=== PATIENT | female | born 1965 | race Caucasian/White ===

== ENCOUNTER → 2019-12-31 13:36 | Outpatient (CLI) | payer SELFPAY ==
[2019-12-31 14:55] LABS: Color, Urine Yellow (Yellow); Glucose, Dipstick Normal (Normal); Ketone-Dipstick Negative (Negative); Leukocyte Esterase-Dipstick 500 /ul (Negative); Nitrite-Dipstick Positive (Negative); Occult Blood-Urine 25 /ul (Negative); Protein-Dipstick 30 mg/dl (Negative); Specific Gravity, Urine 1.015 (1.002-1.030); Urine Bilirubin Dipstick Negative (Negative); Urine Clarity Cloudy (Clear); Urine Urobilinogen Normal (Normal)
== END ==
PROVIDERS: PCP Family Medicine; Referring Provider Family Medicine; Visit Provider Family Medicine
DX: N30.10 Interstitial cystitis (chronic) without hematuria (principal); R30.0 Dysuria
CPT/HCPCS: 81002; 87086; 87088; 87186

== ENCOUNTER → 2020-01-18 12:44 | Outpatient (CLI) | payer SELFPAY | PROVIDERS: PCP Family Medicine; Referring Provider Family Medicine; Visit Provider Family Medicine | DX: N39.0 Urinary tract infection, site not specified (principal) | CPT/HCPCS: 87086; 87088 ==

== ENCOUNTER → 2020-04-30 11:30 | Outpatient (CLI) | payer SELFPAY ==
[2020-04-30 15:58] LABS: Absolute Lymphocyte Count 1.75 X10^3/uL (0.83-4.51); Absolute Neutrophil Count 2.9 X10^3/uL (2.0-7.7); Basophil# 0.03 X10^3/uL; Basophil% 0.6 % (0-1); Eosinophil# 0.08 X10^3/uL; Eosinophils% 1.5 % (0-5); Hematocrit 42.4 % (37-47); Hemoglobin 13.8 g/dL (12.0-15.0); Lymphocyte # 1.75 X10^3/ul (4.0); Lymphocyte % 33.3 % (19-41); Mean Corp Hgb Conc 32.5 g/dL (32-36); Mean Corpuscular Hgb 30.5 pg (27.0-32.0); Mean Corpuscular Volume 93.6 fL (81-99); Mean Platelet Vol. 10.9 fl (6.2-12.0); Monocyte# 0.46 X10^3/uL; Monocyte% 8.7 % (0-10); NRBC Flagged by Analyzer 0 % (0-5); Neutrophil # 2.92 X10^3/uL (2.7-7.7); Neutrophil % 55.5 % (47-70); Platelet Count 208 K/mm3 (150-450); RBC Distribution Width SD 41.4 fl (35.1-43.9); Red Blood Count 4.53 M/mm3 (4.2-5.4); White Blood Count 5.3 K/mm3 (4.4-11.0)
[2020-04-30 16:16] LABS: Hemoglobin A1c 5.6 % (3.8-5.6)
[2020-04-30 16:20] LABS: T4 Free Direct 1.04 ng/dL (0.76-1.46); Thyroid Stim Hormone (TSH) 0.98 uIU/mL (0.358-3.74)
[2020-05-05 21:24] LABS: HPV Reflexed? NOT INDICATED
== END ==
PROVIDERS: PCP Family Medicine; Visit Provider Family Medicine
DX: R53.83 Other fatigue (principal); Z13.1 Encounter for screening for diabetes mellitus; E04.9 Nontoxic goiter, unspecified; Z12.4 Encounter for screening for malignant neoplasm of cervix; Z01.419 Encounter for gynecological examination (general) (routine) without abnormal findings
CPT/HCPCS: 36415; 83036; 84439; 84443; 85025; 88175; G0145

== ENCOUNTER → 2021-05-07 07:48 | Outpatient (CLI) | payer OTHER, SELFPAY ==
[2021-05-07 09:56] LABS: Absolute Lymphocyte Count 1.24 X10^3/uL (0.83-4.51); Absolute Neutrophil Count 3.1 X10^3/uL (2.0-7.7); Basophil# 0.03 X10^3/uL; Basophil% 0.6 % (0-1); Eosinophil# 0.07 X10^3/uL; Eosinophils% 1.4 % (0-5); Hemoglobin 13.9 g/dL (12.0-15.0); Lymphocyte # 1.24 X10^3/ul (0.83-4.51); Lymphocyte % 25.5 % (19-41); Mean Corp Hgb Conc 33.9 g/dL (32-36); Mean Corpuscular Volume 88.6 fL (81-99); Mean Platelet Vol. 10.7 fl (6.2-12.0); Monocyte# 0.45 X10^3/uL; Monocyte% 9.3 % (0-10); NRBC Flagged by Analyzer 0 % (0-5); Neutrophil # 3.05 X10^3/uL (2.7-7.7); Neutrophil % 62.8 % (47-70); Platelet Count 182 K/mm3 (150-450); RBC Distribution Width CV 11.8 % (11.6-14.6); RBC Distribution Width SD 37.6 fl (35.1-43.9); Red Blood Count 4.63 M/mm3 (4.2-5.4); White Blood Count 4.9 K/mm3 (4.4-11.0)
[2021-05-07 10:13] LABS: Vitamin B12 503 pg/mL (211-911)
[2021-05-07 10:27] LABS: ALB/GLOB Ratio 1.2 RATIO (0.9-2.4); AST(SGOT) 18 U/L (15-37); Alanine Aminotransfer ALT/SGPT 32 U/L (13-56); Alkaline Phosphatase 78 U/L (45-117); Anion Gap 6 (5-15); BUN 13 mg/dL (7-18); BUN/Creat Ratio 13.6 RATIO (10-20); Calcium,Total 9.4 mg/dL (8.5-10.1); Chloride 105 mmol/L (98-107); Cholesterol 182 mg/dL (200); Creatinine, Serum 0.96 mg/dL (0.55-1.02); EST Glomerular Filtration Rate 64 mL/min (>60); Est Glom Filt Rate - Afr Amer 77 mL/min (>60); Ferritin 95 ng/mL (8-252); Globulin 3.4 g/dL (2.2-4.2); Glucose 101 mg/dL (74-106); High Density Lipoprotein 50 mg/dL; Iron 89 ug/dL (50-170); Magnesium 2.2 mg/dL (1.6-2.6); Potassium 4.3 mmol/L (3.5-5.1); Protein, Total 7.4 g/dL (6.4-8.2); Sodium Level 141 mmol/L (136-145); T4 Free Direct 0.96 ng/dL (0.76-1.46); Thyroid Stim Hormone (TSH) 1.02 uIU/mL (0.358-3.74); Triglycerides 131 mg/dL; Very Low Density Lipoprotein 26 mg/dL (5-40)
== END ==
PROVIDERS: PCP Family Medicine; Referring Provider Family Medicine; Visit Provider Family Medicine
DX: Z00.00 Encounter for general adult medical examination without abnormal findings (principal); E53.8 Deficiency of other specified B group vitamins; E04.9 Nontoxic goiter, unspecified; E55.9 Vitamin D deficiency, unspecified; D64.9 Anemia, unspecified
CPT/HCPCS: 36415; 80053; 80061; 82306; 82607; 82728; 82746; 83540; 83735; 84439; 84443; 85025

== ENCOUNTER → 2021-06-25 09:56 | Outpatient (CLI) | payer OTHER, SELFPAY ==
--- NOTE | 2021-06-25 10:03 | US_ITS ---
HISTORY: GOITER EXAMINATION: US Thyroid (eg thyroid, parathyroid, parotid) TECHNIQUE: Taylor scale and color doppler imaging was performed of the thyroid gland. COMPARISON: September 16, 2015, September 28, 2013 ultrasound . FINDINGS: RIGHT THYROID LOBE: 5.0 x 2.3 x 1.9 cm. Homogeneous echotexture with normal vascularity. Nodules: 1: Anterior lower pole solid hypoechoic wider than tall smoothly marginated nodule without calcifications 0.6 x 0.6 x 0.2 cm, TIRAD-4 2: Posterior lower pole mixed cystic solid hypoechoic wider than tall smoothly marginated nodule without calcifications 1.6 x 1.4 x 1.5 cm, TIRAD-3 (increased from 1.3 x 1.1 x 1.0 cm September 16, 2015 and 1.1 x 1.1 x 0.9 cm September 28, 2013 3: Anterior mid pole solid hypoechoic wider than tall smoothly marginated nodule without calcifications 0.4 x 0.3 x 0.4 cm, TIRAD-4 LEFT THYROID LOBE: 4.9 x 1.8 x 1.4 cm. Homogeneous echotexture with normal vascularity. Nodules: 1: Lower pole solid isoechoic wider than tall smoothly marginated nodule without calcifications 0.6 x 0.6 x 0.3, TIRAD-3. 2: Lower pole cystic anechoic 0.3 x 0.4 x 0.2 wider than tall smoothly marginated nodule without calcification, TIRAD-1 ISTHMUS: 0.3 cm. Nodules: No thyroid nodules are present. US/Thyroid IMPRESSION: Multinodular goiter with right thyroid 1.6 cm TI-RAD3 nodule and multiple subcentimeter TI-RAD 4 nodules. TI-RAD 3 is increased in size from 2016 ultrasound and subcentimeter TI-RAD 4 nodules are new or increased from prior exam.. One-year follow-up ultrasound is recommended per ACR criteria below if tissue sampling not obtained for histopathologic diagnosis. ACR TI-RADS recommendations (J Am Kaiden Radiol 2017): Based on composition, echogenicity, shape, margin, and echogenic foci. TR5 (=7 points) - Highly suspicious FNA if = 1cm, follow up if 0.5-0.9 cm every year for 5 years TR4 (4 - 6 points) - Moderately suspicious FNA if = 1.5cm, follow - up if 1-1.4 cm in 1, 2, 3 and 5 years TR3 (3 points) - Mildly suspicious FNA if = 2.5cm, follow - up if 1.5-2.4 cm in 1, 3 and 5 years TR2 (2 points) - Not suspicious No FNA or follow-up TR1 (0 points) - Benign No FNA or follow-up -Biopsy no more than 2 nodules which meet FNA criteria. -Follow/report no more than 4 nodules with highest TR point totals. -Follow-up can stop at 5 years if there is no change in size. -If nodule TR level increases on follow-up the next sonogram should be done in one year. at 0447 Reported and signed by: Lokesh French MD Electronically Signed: Lokesh French MD at 4:46 EDT Tel , Service support ,
== END ==
PROVIDERS: PCP Family Medicine; Referring Provider Family Medicine; Visit Provider Family Medicine
DX: E04.9 Nontoxic goiter, unspecified (principal)
CPT/HCPCS: 76536

== ENCOUNTER → 2021-06-30 07:09 | Outpatient (CLI) | payer OTHER, SELFPAY ==
--- NOTE | 2021-06-30 07:12 | BI_ITS ---
MAMMOGRAPHY - BILATERAL SCREENING REASON FOR EXAM: Female, 55 years old. Routine annual screening examination. PERTINENT HISTORY: Non-contributory. TECHNIQUE: Digital bilateral breast elder (3D mammographic acquisition) in the CC and MLO projections. 2-D mediolateral oblique (MLO) and craniocaudad (CC) views of both breasts were obtained. CAD: Full Field Digital Mammography with Computer Added Detection was performed. COMPARISON: Comparison is made with prior study 06/17/2017 and 06/11/2016. FINDINGS: Breast Composition: The breasts are extremely dense, which lowers the sensitivity of mammography. There are no dominant masses or suspicious calcifications. No other significant abnormalities are identified. There has been no significant change since the prior study. BI/SCRN MAMM (CAD)W/ELDER BILAT IMPRESSION: Stable bilateral screening mammogram. Yearly follow-up mammogram recommended. (A) ASSESSMENT CATEGORY: BIRADS Category 1: Negative. A letter regarding these results will be sent to the patient by the facility within 30 days. Approximately 10% of breast cancers are not detected by mammography. A normal mammogram should not delay biopsy of a clinically suspicious abnormality. [id number] Electronically Signed: Brady Cuenca MD at 9:03 EDT , Service support ,
== END ==
PROVIDERS: PCP Family Medicine; Referring Provider Family Medicine; Visit Provider Family Medicine
DX: Z12.31 Encounter for screening mammogram for malignant neoplasm of breast (principal)
CPT/HCPCS: 77063; 77067

== ENCOUNTER → 2022-02-10 | Outpatient (CLI) | payer OTHER, SELFPAY ==
--- NOTE | 2022-02-10 11:44 | STRESSREP ---
Stress Test Report Pharmacologic myocardial perfusion stress test 56-year-old lady with a history of chest discomfort. Stress protocol: Resting EKG demonstrates normal sinus rhythm with a rate of 66 bpm normal intervals are noted resting blood pressure is 118/70 mmHg. 0.4 mg of regadenoson was infused per usual protocol followed by rapid intravenous saline flush injection continuous EKG monitoring was performed. The maximum heart rate attained was 90 bpm which was 55% of max impacted heart rate the maximum workload was 1 metabolic equivalent. At rest there were no ST or T wave changes noted to suggest abnormal flow reserve and at peak infusion nonspecific ST changes were noted with did not meet the criteria for ischemia. No clinical angina was noted the final blood pressure was 120/72 mmHg. Myocardial perfusion protocol. 11.8 mCi of technetium 99m sestamibi was injected at rest. 0.4 mg of regadenoson was infused per usual protocol. At peak infusion 33.0 mCi of technetium 99m sestamibi was injected stress images were obtained stress and rest images were reconstructed and compared in the short axis vertical long and horizontal long axis. Gated images were also obtained. Perfusion SPECT analysis: Review of the stress images demonstrate normal uptake of tracer noted in all areas of the myocardium except for reduction of perfusion in the anterior wall. The resting images similarly demonstrate normal uptake of tracer noted in all areas of the myocardium with mild reduction of perfusion in the anterior wall which appears to be improved compared to the stress images. The above could be suggestive of mild anterior ischemia. The rest of the chiang appear to be normally perfused. Gated SPECT analysis: Next gated ejection fraction is 72%. Conclusion: Pharmacologic myocardial perfusion stress test with possible anterior ischemia noted. Preserved ejection fraction.
== END | disposition home or self-care (01) ==
LOC: CVS 06:47
PROVIDERS: PCP Family Medicine; Visit Provider Family Medicine
DX: R07.9 Chest pain, unspecified (principal); R94.31 Abnormal electrocardiogram [ECG] [EKG]; R06.09 Other forms of dyspnea; Z82.49 Family history of ischemic heart disease and other diseases of the circulatory system
CPT/HCPCS: 78452; 93017; A9500; A4216; J2785

== ENCOUNTER → 2022-02-12 | Outpatient (CLI) | payer OTHER, SELFPAY ==
--- NOTE | 2022-02-12 08:02 | MRI_ITS ---
STUDY: MRI LUMBAR SPINE WITHOUT CONTRAST REASON FOR EXAM: Female, 56 years old. HERNIATED DISC X 2 TECHNIQUE: Standardized fat and water weighted pulse sequences were obtained in the sagittal and axial planes. COMPARISON: CT abdomen and pelvis with contrast 12/23/2016. FINDINGS: T10-T11, T11-T12 and T12-L1: (Sagittal only). Normal endplates. Normal disc height, hydration and morphology. No ventral extradural defects. Normal central canal and bilateral intervertebral neural foramina. Normal lumbar lordosis. There is no substantial scoliosis. Normal conus medullaris that terminates at the lower L1 vertebral body level. L1-2: Normal endplates. Normal disc height. Mild ventral extradural defect due to small posterior bulging annulus. Normal facet joints. Normal central canal and bilateral lateral recesses. Normal bilateral intervertebral neural foramina. L2-3: Normal endplates. Normal disc height and hydration. Minimal ventral extradural defect due to small posterior bulging annulus. Mild left degenerative facet arthropathy. Normal right facet joint. Normal central canal and bilateral lateral recesses. Normal bilateral intervertebral neural foramina. L3-4: Normal endplates. Normal disc height, hydration and morphology. Normal bilateral facet joints. Normal central canal and bilateral lateral recesses. Normal bilateral intervertebral neural foramina. L4-5: Normal endplates. Normal disc height with mild loss of disc hydration. Moderate right degenerative facet arthropathy. Mild to moderate left degenerative facet arthropathy. Normal central canal and bilateral lateral recesses. Normal bilateral intervertebral neural foramina. L5-S1: Normal endplates. Normal disc height and morphology. Normal facet joints. Normal central canal and bilateral lateral recesses. TARLOV cyst in the right lateral recess. Normal bilateral intervertebral neural foramina. Normal visualized sacral ala. Normal visualized paraspinous soft tissue structures. MRI/Spine Lumbar (Routine) IMPRESSION: No MRI evidence of lumbar extruded disc fragment, spinal stenosis or nerve root displacement. Electronically Signed: Kole Wilson MD at 16:25 EDT ,
== END | disposition home or self-care (01) ==
PROVIDERS: PCP Family Medicine; Referring Provider Family Medicine; Visit Provider Family Medicine
DX: M51.16 Intervertebral disc disorders with radiculopathy, lumbar region (principal)
CPT/HCPCS: 72148

== ENCOUNTER → 2022-04-14 | Outpatient (CLI) | payer OTHER, SELFPAY ==
--- NOTE | 2022-04-14 14:24 | RAD_ITS ---
STUDY: X-RAY CHEST REASON FOR EXAM: Female, 56 years old. cad TECHNIQUE: XR Chest 2 Views COMPARISON: None FINDINGS: There is no demonstrated pleural abnormality. Normal size heart. Normal mediastinum and frederic. Normal visualized pulmonary arteries. Normal visualized aortic arch and descending thoracic aorta. There are diffuse degenerative changes of the visualized thoracic spine. Normal visualized ribs, clavicles, and shoulders. There is no demonstrated abnormality of the visualized soft tissue structures of the upper abdomen. RAD/Chest PA and Lateral IMPRESSION: There are no acute findings. Electronically Signed: Ilia Sarkar MD at 20:03 EDT ,
[2022-04-14 16:38] LABS: Absolute Lymphocyte Count 1.47 X10^3/uL (0.83-4.51); Basophil# 0.03 X10^3/uL; Basophil% 0.6 % (0-1); Eosinophil# 0.08 X10^3/uL; Eosinophils% 1.6 % (0-5); Hematocrit 41.1 % (37-47); Hemoglobin 14.2 g/dL (12.0-15.0); Lymphocyte # 1.47 X10^3/ul (0.83-4.51); Lymphocyte % 28.5 % (19-41); Mean Corp Hgb Conc 34.5 g/dL (32-36); Mean Corpuscular Hgb 30.8 pg (27.0-32.0); Mean Corpuscular Volume 89.2 fL (81-99); Mean Platelet Vol. 10.6 fl (6.2-12.0); Monocyte# 0.54 X10^3/uL; Monocyte% 10.5 % (0-10); NRBC Flagged by Analyzer 0 % (0-5); Neutrophil # 3.02 X10^3/uL (2.7-7.7); Neutrophil % 58.4 % (47-70); Platelet Count 193 K/mm3 (150-450); RBC Distribution Width CV 11.9 % (11.6-14.6); RBC Distribution Width SD 38.9 fl (35.1-43.9); Red Blood Count 4.61 M/mm3 (4.2-5.4); White Blood Count 5.2 K/mm3 (4.4-11.0)
[2022-04-14 18:52] LABS: Anion Gap 7 (5-15); BUN 14 mg/dL (7-18); BUN/Creat Ratio 15.2 RATIO (10-20); Calcium,Total 9.3 mg/dL (8.5-10.1); Chloride 105 mmol/L (98-107); Creatinine, Serum 0.92 mg/dL (0.55-1.02); EST Glomerular Filtration Rate 67 mL/min (>60); Est Glom Filt Rate - Afr Amer 81 mL/min (>60); Glucose 84 mg/dL (74-106); Potassium 3.9 mmol/L (3.5-5.1); Sodium Level 141 mmol/L (136-145)
== END | disposition home or self-care (01) ==
PROVIDERS: PCP Family Medicine; Referring Provider Internal Medicine Cardiovascular Disease; Visit Provider Internal Medicine Cardiovascular Disease
DX: I25.10 Atherosclerotic heart disease of native coronary artery without angina pectoris (principal); R94.39 Abnormal result of other cardiovascular function study; R07.9 Chest pain, unspecified
CPT/HCPCS: 36415; 71046; 80048; 85025

== ENCOUNTER 2022-04-19 08:57 | Day surgery (SDC) | payer OTHER, SELFPAY ==
[2022-04-16 08:51] VITALS: BMI 29.2
--- NOTE | 2022-04-19 12:30 | CL.D_ITS ---
Patient Name: KOSTA GHOTRA Study Date: 04/19/2022 Performing: Mac Lees MD Ht: 66.92 inches 170 cm : 1965 Wt: 187.39 lbs 85 kg Age: 56 Gender: female BSA: 1.97 PROCEDURE(S) PERFORMED [id number]-([id number])[facility] CLINICAL PROFILE AND INDICATIONS Indications: New Onset Angina <= 2 months Heart Failure: None Stress/Imaging Date: 04/14/22 CAD Presentations: Symptom unlikely to be ischemic. 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 The risks and benefits of the procedure as well as a full d escription of our services here and current unavailability of surgical backup were fully explained to the patient and/or their significant other prior to the catheterization. The Timeout was completed, verifying the correct patient and procedure. The patient's procedural site was prepped and draped in the usual fashion. Local anesthetic was given subcutaneously to right radial region with Lidocaine 2% . Using a modified Seldinger technique, arterial access was obtained via the right radial artery, a 6 Fr sheath was inserted. Right Coronary Artery selective angiography was then performed in multiple v iews using a 5 Fr. 4.0 Davilla catheter. Left Coronary Artery selective angiography was performed in mu ltiple views using a 5 Fr. 4.0 Davilla catheter.The arterial sheath was pulled and a TR Band was applie d for hemostasis w/ 12ml air CORONARY ANGIOGRAPHY DOMINANCE: Right Dominant LEFT HEART ASSESSMENT Left Ventricular Ejection Fraction: Not assessed LEFT MAIN: Angiographically normal LEFT ANTERIOR DESCENDING ARTERY: Angiographically normal RIGHT CORONARY ARTERY: Angiographically normal Arising from left coronary cusp. COMPLICATIONS No Complications PROCEDURE MEDICATIONS Versed 1 mg IV Fentanyl 50 mcg IV Oxygen: 2 L/min via nasal cannula SUMMARY OF HEMODYNAMIC DATA Time AIR REST ECG 09:25:14 Art 122/66 (88) 11:53:28 AO 102/73 (87) SA 12:02:14 Signed By Mac Lees MD On 04/19/2022 12:30:03 PM Mac Lees MD
[2022-04-19 13:33] VITALS: BP 106/76; PULSE 69; RESP 16
[2022-04-19 13:40] VITALS: BP 112/76; PULSE 61; RESP 16
[2022-04-19 13:49] VITALS: BP 112/76; PULSE 65
[2022-04-19] MEDS: Nitroglycerin SL (ED/IMG/CATH) 0.4 MG TABLET SL (13:49)
[2022-04-19 13:54] VITALS: BP 103/69; PULSE 74; RESP 16
--- NOTE | 2022-04-19 14:29 | CT_ITS ---
INDICATION: OVER READ FOR CARDIAC EXAMINATION: CT CHEST WITHOUT CONTRAST - CT Chest W/O Contrast Injection TECHNIQUE: Helically acquired images were obtained of the chest. A radiation dose optimization technique was used for this scan. IV Contrast dosage and agent: None. COMPARISON: None. FINDINGS: LUNGS, PLEURA AND LARGE AIRWAYS: Mild degree of increased linear markings at the lung bases suggestive of a bibasilar linear atelectasis. No pleural effusion or thickening. No pneumothorax. THYROID: No thyroid lesions. HEART AND PERICARDIUM: Heart size is normal. No pericardial effusion. CORONARY ARTERIES: Coronary artery calcification is not seen. VESSELS: Thoracic aorta is not dilated. MEDIASTINUM AND GRACE: No mediastinal or hilar adenopathy. Esophagus is unremarkable. No hiatal hernia. UPPER ABDOMEN: No acute pathology. BONES: Degenerative changes of the thoracic spine. CT/Limited Chest CT Cardiac Only IMPRESSION: Mild degree of basilar linear atelectasis. Electronically Signed: Brady Cuenca MD at 14:58 EDT ,
--- NOTE | 2022-04-19 17:55 | CCTA.WCONT ---
CCTA w/Cont Coronary Arteries Date of Study:: 04/19/22 Coronary anomaly LEFT MAIN CORONARY ARTERY: This arises normally from the left coronary cusp and bifurcates into the left anterior descending artery and the left circumflex artery [] LEFT ANTERIOR DESCENDING CORONARY ARTERY: Medium size vessel giving off diagonal and septal perforators with no significant stenosis noted [] LEFT CIRCUMFLEX CORONARY ARTERY: This vessel comes off the left main coronary artery and is a nondominant vessel with no significant stenosis noted [] RIGHT CORONARY ARTERY: Dominant vessel coming off the left coronary cusp and coursing between the pulmonary artery anteriorly and the aorta posteriorly and then terminates after giving off an acute marginal and posterior descending artery [] THORACIC AORTA: Normal size [] PULMONARY ARTERY: Normal size [] [] LEFT VENTRICLE: Normal size ventricle with normal ejection fraction [] Conclusion: 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 No obstructive coronary disease noted []
== END 2022-04-19 14:25 | disposition home or self-care (01) ==
PROVIDERS: PCP Family Medicine; Referring Provider Internal Medicine Cardiovascular Disease; Visit Provider Internal Medicine Cardiovascular Disease
DX: R07.89 Other chest pain (principal); R94.39 Abnormal result of other cardiovascular function study; K21.9 Gastro-esophageal reflux disease without esophagitis; Z82.49 Family history of ischemic heart disease and other diseases of the circulatory system; Z87.891 Personal history of nicotine dependence
CPT/HCPCS: 75574; 76380; 93454; 99152; 99153; J7040; Q9967; C1769; C1887; C1894

== ENCOUNTER → 2022-04-23 | Outpatient (CLI) | payer OTHER, SELFPAY ==
--- NOTE | 2022-04-23 06:49 | CDU_ITS ---
Reason For Study: CAD Rt. Velocities/BP Lt. Velocities/BP Prox CCA 89/17 cm/sec. Prox CCA 94/22 cm/sec. Mid CCA 70/21 cm/sec. Mid CCA 79/22 cm/sec. Dist CCA 59/18 cm/sec. Dist CCA 61/22 cm/sec. Prox ICA 66/20 cm/sec. Prox ICA 73/23 cm/sec. Mid ICA 82/24 cm/sec. Mid ICA 60/25 cm/sec. Dist ICA 84/27 cm/sec. Dist ICA 80/37 cm/sec. Rt. ICA/CCA = 1.2. Lt. ICA/CCA = 1.0. Prox ECA 74/13 cm/sec. Prox ECA 84/22 cm/sec. Rt. Vert. 49/18 cm/sec. Lt. Vert. 49/19 cm/sec. Right Extracranial There is heterogeneous, irregular atherosclerotic plaque noted in the right common carotid artery. There is no significant atherosclerotic plaque noted in the right internal carotid artery. There is no significant atherosclerotic plaque noted in the right external carotid artery. Antegrade flow is noted in the right vertebral artery. Left Extracranial There is intimal thickening but no significant atherosclerotic plaque noted in the left common carotid artery. There is no significant atherosclerotic plaque noted in the left internal carotid artery. There is no significant atherosclerotic plaque noted in the left external carotid artery. Antegrade flow is noted in the left vertebral artery. Procedure Carotid Duplex 30251. This is a Carotid Duplex examination using B-mode, color flow and specral Doppler. Exam performed in department. VL/Carotid Duplex Ultrasound Interpretation Summary Normal right extracranial internal carotid. Normal left extracranial internal carotid. Patent and antegrade vertebrals bilaterally. Ordering Physician: Mac Lees Referring Physician: Yoshi Henderson Performed By: Brandy Driver, RDCS, RVT
--- NOTE | 2022-04-23 06:49 | ECHOD_ITS ---
Reason For Study: CAD/ASHD Procedure This was a 2D Doppler, Color Flow transthoracic echocardiogram. Exam performed in department. Left Ventricle Normal LV size. Left ventricular systolic function is normal. The estimated ejection fraction is 55 %. Normal diastology for age. No regional wall motion abnormalities noted. Right Ventricle Normal RV size. Normal systolic function. Atria Normal left atrium. Normal right atrium. Mitral Valve Normal mitral valve. Tricuspid Valve Normal tricuspid valve. Mild (1+) tricuspid valve insufficiency. Pulmonary artery systolic pressure is 23 mmHg. Aortic Valve Trisinus/trileaflet aortic valve. 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 Pulmonic Valve Normal pulmonic valve. Great Vessels Normal aortic root. Pericardium/Pleural No pericardial effusion. MMode/2D Measurements & Calculations LVIDd: 5.1 cm IVSd: 0.88 cm Ao root diam: 3.4 cm LVIDs: 3.6 cm LVPWd: 0.88 cm RVDd: 2.7 cm FS: 29.6 % LAV(MOD-bp): 61.1 ml LVAd ap4: 27.9 cm2 LVAd ap2: 22.1 cm2 LAV(MOD-bp) Indexed: 31.1 ml/m2 LVLd ap4: 7.8 cm LVLd ap2: 7.6 cm LAV(MOD-sp2): 56.0 ml EDV(MOD-sp4): 90.3 ml EDV(MOD-sp2): 56.6 ml LAV(MOD-sp4): 64.7 ml EDV(sp4-el): 84.7 ml EDV(sp2-el): 54.9 ml LVAs ap4: 15.7 cm2 LVAs ap2: 11.8 cm2 LVLs ap4: 5.8 cm LVLs ap2: 6.0 cm ESV(MOD-sp4): 38.4 ml ESV(MOD-sp2): 20.5 ml ESV(sp4-el): 36.1 ml ESV(sp2-el): 19.5 ml EF(MOD-sp4): 57.5 % EF(MOD-sp2): 63.7 % EF(sp4-el): 57.3 % SV(MOD-sp4): 51.9 ml SV(MOD-sp2): 36.1 ml SV(sp4-el): 48.5 ml LA dimension(2D): 3.4 cm LA A4 area: 20.7 cm2 RA A4 area: 13.7 cm2 Time Measurements MV dec time: 0.17 sec Doppler Measurements & Calculations MV E max lloyd: 83.7 cm/sec Lat Peak E' Lloyd: 7.7 cm/sec Med Peak E' Lloyd: 7.4 cm/sec MV A max lloyd: 69.6 cm/sec E/E' lat: 10.9 E/E' med: 11.3 MV E/A: 1.2 Ao V2 max: 113.7 cm/sec LV V1 max: 77.9 cm/sec PA V2 max: 70.0 cm/sec Ao max P.2 mmHg LV V1 max P.4 mmHg Ao V2 mean: 78.0 cm/sec LV V1 mean P.4 mmHg Ao mean P.8 mmHg LV V1 mean: 55.1 cm/sec Ao V2 VTI: 27.8 cm LV V1 VTI: 19.7 cm TR max lloyd: 230.2 cm/sec TR max P.2 mmHg ECHO/Echo Complete Interpretation Summary Normal LV size. Left ventricular systolic function is normal. The estimated ejection fraction is 55 %. Trisinus/trileaflet aortic valve. 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
--- NOTE | 2022-04-25 08:57 | PFT ---
INTRODUCTION: The patient is a 56-year-old female that presents for pulmonary function studies secondary to a diagnosis of preop clearance. Respiratory therapy reported good patient effort. Bronchodilators were used during testing. INTERPRETATION: Forced expiration spirometry demonstrates no evidence of a large airways obstructive ventilatory defect. There was no significant response to aerosolized bronchodilators. Spirograms are of good quality and plateau normally. The respiratory flow volume loop is normal. Body plethysmography was performed and reveals lung volumes to be within normal limits. Diffusing capacity by single breath CO is also within normal limits. IMPRESSION: Grossly normal pulmonary function studies.
== END | disposition home or self-care (01) ==
PROVIDERS: PCP Family Medicine; Referring Provider Internal Medicine Cardiovascular Disease; Visit Provider Internal Medicine Cardiovascular Disease
DX: R94.39 Abnormal result of other cardiovascular function study (principal); R94.31 Abnormal electrocardiogram [ECG] [EKG]; Q24.5 Malformation of coronary vessels; R07.9 Chest pain, unspecified; E66.9 Obesity, unspecified; R91.1 Solitary pulmonary nodule; I25.10 Atherosclerotic heart disease of native coronary artery without angina pectoris
CPT/HCPCS: 93306; 93880; 94060; 94726; 94729

== ENCOUNTER → 2022-05-28 | Outpatient (CLI) | payer OTHER, SELFPAY ==
[2022-05-28 17:41] LABS: ALB/GLOB Ratio 1.2 RATIO (0.9-2.4); AST(SGOT) 10 U/L (15-37); Alanine Aminotransfer ALT/SGPT 19 U/L (13-56); Albumin, Serum 3.7 g/dL (3.2-5.0); Alkaline Phosphatase 108 U/L (45-117); Anion Gap 5 (5-15); BUN 15 mg/dL (7-18); BUN/Creat Ratio 16.1 RATIO (10-20); CPK Total, Creatine Kinase 51 U/L (26-192); Calcium,Total 9.6 mg/dL (8.5-10.1); Chloride 106 mmol/L (98-107); Creatinine, Serum 0.93 mg/dL (0.55-1.02); EST Glomerular Filtration Rate 66 mL/min (>60); Est Glom Filt Rate - Afr Amer 80 mL/min (>60); Globulin 3.1 g/dL (2.2-4.2); Glucose 120 mg/dL (74-106); Potassium 3.9 mmol/L (3.5-5.1); Protein, Total 6.8 g/dL (6.4-8.2); Sodium Level 142 mmol/L (136-145)
== END | disposition home or self-care (01) ==
LOC: LAB 15:53
PROVIDERS: PCP Family Medicine; Visit Provider Physician Assistant Medical
DX: M79.10 Myalgia, unspecified site (principal); T46.6X5A Adverse effect of antihyperlipidemic and antiarteriosclerotic drugs, initial encounter; Z98.890 Other specified postprocedural states
CPT/HCPCS: 36415; 80053; 82550

== ENCOUNTER → 2022-05-31 | Outpatient (CLI) | payer OTHER, SELFPAY ==
[2022-05-31 14:19] LABS: Absolute Lymphocyte Count 1.56 X10^3/uL (0.83-4.51); Absolute Neutrophil Count 2.3 X10^3/uL (2.0-7.7); Basophil# 0.04 X10^3/uL; Basophil% 0.9 % (0-1); Eosinophil# 0.15 X10^3/uL; Eosinophils% 3.3 % (0-5); Hematocrit 35.5 % (37-47); Hemoglobin 11.8 g/dL (12.0-15.0); Lymphocyte # 1.56 X10^3/ul (0.83-4.51); Lymphocyte % 34.4 % (19-41); Mean Corp Hgb Conc 33.2 g/dL (32-36); Mean Corpuscular Hgb 30.8 pg (27.0-32.0); Mean Corpuscular Volume 92.7 fL (81-99); Mean Platelet Vol. 9.6 fl (6.2-12.0); Monocyte# 0.47 X10^3/uL; Monocyte% 10.4 % (0-10); NRBC Flagged by Analyzer 0 % (0-5); Neutrophil # 2.29 X10^3/uL (2.7-7.7); Neutrophil % 50.6 % (47-70); Platelet Count 316 K/mm3 (150-450); RBC Distribution Width CV 12.6 % (11.6-14.6); RBC Distribution Width SD 42.7 fl (35.1-43.9); Red Blood Count 3.83 M/mm3 (4.2-5.4); White Blood Count 4.5 K/mm3 (4.4-11.0)
== END | disposition home or self-care (01) ==
LOC: LAB 13:24
PROVIDERS: PCP Family Medicine; Referring Provider Physician Assistant Medical; Visit Provider Physician Assistant Medical
DX: M79.10 Myalgia, unspecified site (principal); T46.6X5A Adverse effect of antihyperlipidemic and antiarteriosclerotic drugs, initial encounter
CPT/HCPCS: 36415; 85025

== ENCOUNTER → 2022-06-29 | Outpatient (CLI) | payer OTHER, SELFPAY | END | disposition home or self-care (01) | LOC: LABSPEC 15:26 | PROVIDERS: PCP Family Medicine; Visit Provider Family Medicine | DX: R30.0 Dysuria (principal) | CPT/HCPCS: 87086 ==

== ENCOUNTER → 2022-07-13 | Outpatient (CLI) | payer OTHER, SELFPAY ==
[2022-07-13 16:11] LABS: Hematocrit 39.2 % (37-47); Hemoglobin 13.2 g/dL (12.0-15.0); Mean Corp Hgb Conc 33.7 g/dL (32-36); Mean Corpuscular Hgb 30.1 pg (27.0-32.0); Mean Corpuscular Volume 89.5 fL (81-99); Mean Platelet Vol. 10.1 fl (6.2-12.0); Platelet Count 191 K/mm3 (150-450); RBC Distribution Width CV 11.9 % (11.6-14.6); RBC Distribution Width SD 38.8 fl (35.1-43.9); Red Blood Count 4.38 M/mm3 (4.2-5.4); White Blood Count 5.3 K/mm3 (4.4-11.0)
[2022-07-13 16:55] LABS: Anion Gap 6 (5-15); BUN 10 mg/dL (7-18); BUN/Creat Ratio 11.3 RATIO (10-20); Calcium,Total 9.3 mg/dL (8.5-10.1); Chloride 106 mmol/L (98-107); Creatinine, Serum 0.89 mg/dL (0.55-1.02); EST Glomerular Filtration Rate 70 mL/min (>60); Est Glom Filt Rate - Afr Amer 84 mL/min (>60); Glucose 102 mg/dL (74-106); Potassium 3.9 mmol/L (3.5-5.1); Sodium Level 141 mmol/L (136-145); T4 Total, Thyroxin 9.7 ug/dL (4.8-13.9); Thyroid Stim Hormone (TSH) 1.18 uIU/mL (0.358-3.74)
== END | disposition home or self-care (01) ==
PROVIDERS: PCP Family Medicine; Visit Provider Internal Medicine Cardiovascular Disease
DX: R40.0 Somnolence (principal); R53.83 Other fatigue; Z98.890 Other specified postprocedural states
CPT/HCPCS: 36415; 80048; 84436; 84443; 85027

== ENCOUNTER → 2022-10-07 | Outpatient (CLI) | payer OTHER, SELFPAY ==
[2022-10-07 17:46] LABS: Absolute Lymphocyte Count 1.46 X10^3/uL (0.83-4.51); Absolute Neutrophil Count 2.2 X10^3/uL (2.0-7.7); Basophil# 0.03 X10^3/uL; Basophil% 0.7 % (0-1); Eosinophil# 0.09 X10^3/uL; Eosinophils% 2.1 % (0-5); Hematocrit 38.5 % (37-47); Hemoglobin 12.9 g/dL (12.0-15.0); Lymphocyte # 1.46 X10^3/ul (0.83-4.51); Mean Corp Hgb Conc 33.5 g/dL (32-36); Mean Corpuscular Hgb 29.7 pg (27.0-32.0); Mean Corpuscular Volume 88.7 fL (81-99); Mean Platelet Vol. 10.4 fl (6.2-12.0); Monocyte# 0.48 X10^3/uL; Monocyte% 11.2 % (0-10); NRBC Flagged by Analyzer 0 % (0-5); Neutrophil # 2.22 X10^3/uL (2.7-7.7); Neutrophil % 51.8 % (47-70); Platelet Count 197 K/mm3 (150-450); RBC Distribution Width CV 12.3 % (11.6-14.6); RBC Distribution Width SD 40.4 fl (35.1-43.9); Red Blood Count 4.34 M/mm3 (4.2-5.4); White Blood Count 4.3 K/mm3 (4.4-11.0)
[2022-10-07 17:50] LABS: Erythrocyte Sedimentation Rate < 1 mm/hr (0-30)
[2022-10-07 18:20] LABS: AST(SGOT) 18 U/L (15-37); Alanine Aminotransfer ALT/SGPT 27 U/L (13-56); Albumin, Serum 3.8 g/dL (3.2-5.0); Alkaline Phosphatase 93 U/L (45-117); Bilirubin, Direct 0.14 mg/dL (0.00-0.30); CPK Total, Creatine Kinase 90 U/L (26-192); CRP 8.75 mg/L (0.0-3.0); Globulin 3.2 g/dL (2.2-4.2); Lipase 106 U/L (73-393); Rheumatoid Factor < 10.0 IU/mL (<15)
[2022-10-07 18:48] LABS: Vitamin B12 402 pg/mL (211-911); Vitamin D,25 Hydroxy 16.6 ng/mL
[2022-10-10 22:27] LABS: CCP IgG Antibodies 3 units (0-19)
[2022-10-11 17:01] LABS: ANTINUCLEAR ANTIBODIES DIRECT Negative (Negative)
== END | disposition home or self-care (01) ==
LOC: BFHLAB 16:09
PROVIDERS: PCP Family Medicine; Visit Provider Family Medicine
DX: R10.9 Unspecified abdominal pain (principal); R13.0 Aphagia; E55.9 Vitamin D deficiency, unspecified; R53.83 Other fatigue; M79.10 Myalgia, unspecified site
CPT/HCPCS: 36415; 80076; 82306; 82550; 82607; 83690; 85025; 85652; 86038; 86140; 86200; 86225; 86235; 86431

== ENCOUNTER → 2022-11-12 | Outpatient (CLI) | payer OTHER, SELFPAY ==
--- NOTE | 2022-11-12 14:16 | RAD_ITS ---
INDICATION: Chest pain EXAMINATION/TECHNIQUE: X-RAY - XR Chest 2 Views COMPARISON: April 14, 2022. FINDINGS: LINES/DEVICES: Sternotomy wires over the mediastinum. LUNGS: No consolidation, edema or effusion. No pneumothorax. MEDIASTINUM AND CARDIOVASCULAR STRUCTURES: Cardiac silhouette not enlarged. Central airways and mediastinal contour are unremarkable. BONES AND SOFT TISSUES: Unremarkable. RAD/Chest PA and Lateral IMPRESSION: No radiographic evidence of acute cardiopulmonary disease. Electronically Signed: Jose E Levy DO at 23:59 EST Reading Location ID and State: [facility] / [place] Tel [phone], Service support ,
== END | disposition home or self-care (01) ==
LOC: RAD 14:15
PROVIDERS: PCP Family Medicine; Referring Provider Nurse Practitioner Gerontology; Visit Provider Nurse Practitioner Gerontology
DX: R07.9 Chest pain, unspecified (principal)
CPT/HCPCS: 71046

== ENCOUNTER → 2022-12-06 | Outpatient (CLI) | payer OTHER, SELFPAY ==
--- NOTE | 2022-12-06 09:53 | US_ITS ---
INDICATION: ABD PAIN EXAMINATION: Ultrasound US Abdomen Limited (quadrant) TECHNIQUE: Taylor scale and color doppler imaging was performed of the right upper quadrant. COMPARISON: CT abdomen and pelvis December 23, 2016. FINDINGS: LIVER: Mildly increased echogenicity partially securing periportal fat, especially in the right hepatic lobe. No focal hepatic lesion. There is no free fluid. Normal size. GALLBLADDER AND BILIARY TREE: No shadowing gallstone, pericholecystic fluid or gallbladder wall thickening is demonstrated. The proximal common bile duct measures 4.60 m, which is within normal limits for the patient''s age. Songraphic Govea''s sign: Negative. PANCREAS: No focal abnormality is demonstrated in the pancreas. No pancreatic ductal dilatation. RIGHT KIDNEY: 10.3 centers in length. Normal size and contour. No cortical thinning. No hydronephrosis. Normal color flow right renal hilum. US/Abdomen Limited IMPRESSION: No acute sonographic abnormality is demonstrated in the right upper quadrant. Hepatic steatosis. Electronically Signed: Umberto Lundberg DO at 22:23 EDT ,
--- NOTE | 2022-12-06 09:53 | US_ITS ---
INDICATION: nodules EXAMINATION: Ultrasound US Thyroid (eg thyroid, parathyroid, parotid) TECHNIQUE: Taylor scale and color doppler imaging was performed of the thyroid gland. COMPARISON: Thyroid ultrasound June 25, 2021. FINDINGS: RIGHT THYROID LOBE: 4.8 x 2.1 x 1.7 cm. Diffusely heterogeneous thyroid gland with multiple nodules described below. [ Mixed solid and cystic, isoechoic, wider than tall smoothly marginated nodule without echogenic foci, 6 x 6 x 4 mm; not suspicious nodule. Solid, hypoechoic, wider than tall, smoothly marginated nodule without echogenic foci measuring 6 x 2 x 6 mm; moderately suspicious nodule. Follow-up imaging recommended given subcentimeter size. Solid, isoechoic, wider than tall, ill-defined nodule without calcifications measuring 5 x 7 x 6 mm; mildly suspicious nodule. No follow-up recommended given size less than 1.5 cm. Most completely solid, isoechoic, heterogeneous nodule, wider than tall with smooth margins and no calcifications; mildly suspicious nodule. Given size less than 1.5 cm, no follow-up recommended. LEFT THYROID LOBE: 4.9 x 1.7 x 1.4 cm. Diffusely heterogeneous thyroid gland with multiple nodules described below. [ Solid, isoechoic, wider than tall nodule with ill-defined margins and no echogenic foci, 8 x7 x 4 mm; mildly suspicious nodule for which no follow-up imaging is recommended based on size less than 1.5 cm. Mixed solid and cystic nodule, wider than tall, smoothly marginated without echogenic foci measuring 6 x 4 x 3 mm; mildly suspicious nodule for which no follow-up is recommended based on size is 1.5 cm. Solid, isoechoic nodule, wider than tall, with ill-defined margins and no echogenic foci, measuring 9 x 7 x 5 mm; mildly suspicious nodule for which no follow-up recommended based on size less than 1.5 cm. ISTHMUS: 3 mm. No thyroid nodules are present. US/Thyroid IMPRESSION: Multiple thyroid nodules, none of which meet ACR BI-RADS recommendations for follow-up imaging. Electronically Signed: Umberto Lundberg DO at 22:55 EDT ,
== END | disposition home or self-care (01) ==
PROVIDERS: PCP Family Medicine; Referring Provider Family Medicine; Visit Provider Family Medicine
DX: R10.9 Unspecified abdominal pain (principal); E04.9 Nontoxic goiter, unspecified
CPT/HCPCS: 76536; 76705

== ENCOUNTER 2022-12-20 15:22 | Outpatient (RCR) | payer OTHER, SELFPAY | END 2022-12-20 19:00 | disposition home or self-care (01) | LOC: PT 15:22 | PROVIDERS: PCP Family Medicine | DX: M46.1 Sacroiliitis, not elsewhere classified (principal) ==

== ENCOUNTER → 2023-02-18 | Outpatient (CLI) | payer OTHER, SELFPAY ==
[2023-02-18 09:39] LABS: Absolute Lymphocyte Count 1.32 X10^3/uL (0.83-4.51); Absolute Neutrophil Count 2.8 X10^3/uL (2.0-7.7); Basophil# 0.03 X10^3/uL; Basophil% 0.6 % (0-1); Eosinophil# 0.07 X10^3/uL; Eosinophils% 1.5 % (0-5); Hematocrit 41.6 % (37-47); Hemoglobin 14.2 g/dL (12.0-15.0); Lymphocyte # 1.32 X10^3/ul (0.83-4.51); Lymphocyte % 28.4 % (19-41); Mean Corp Hgb Conc 34.1 g/dL (32-36); Mean Corpuscular Hgb 30.3 pg (27.0-32.0); Mean Corpuscular Volume 88.7 fL (81-99); Mean Platelet Vol. 10.3 fl (6.2-12.0); Monocyte# 0.44 X10^3/uL; Monocyte% 9.5 % (0-10); NRBC Flagged by Analyzer 0 % (0-5); Neutrophil # 2.76 X10^3/uL (2.7-7.7); Neutrophil % 59.6 % (47-70); Platelet Count 212 K/mm3 (150-450); RBC Distribution Width CV 12.6 % (11.6-14.6); RBC Distribution Width SD 40.7 fl (35.1-43.9); Red Blood Count 4.69 M/mm3 (4.2-5.4); White Blood Count 4.6 K/mm3 (4.4-11.0)
[2023-02-18 10:03] LABS: ALB/GLOB Ratio 1.1 RATIO (0.9-2.4); AST(SGOT) 20 U/L (15-37); Alanine Aminotransfer ALT/SGPT 26 U/L (13-56); Albumin, Serum 3.9 g/dL (3.2-5.0); Alkaline Phosphatase 86 U/L (45-117); Anion Gap 3 (5-15); BUN 9 mg/dL (7-18); BUN/Creat Ratio 9.5 RATIO (10-20); CRP 3.11 mg/L (0.0-3.0); Calcium,Total 9.5 mg/dL (8.5-10.1); Chloride 106 mmol/L (98-107); Creatinine, Serum 0.95 mg/dL (0.55-1.02); EST Glomerular Filtration Rate 64 mL/min (>60); Est Glom Filt Rate - Afr Amer 78 mL/min (>60); Globulin 3.4 g/dL (2.2-4.2); Glucose 106 mg/dL (74-106); LDH 202 U/L (84-246); Potassium 4.1 mmol/L (3.5-5.1); Protein, Total 7.3 g/dL (6.4-8.2); Sodium Level 140 mmol/L (136-145)
[2023-02-18 13:21] LABS: Erythrocyte Sedimentation Rate < 1 mm/hr (0-30)
[2023-02-21 13:07] LABS: Anti-Centromere B Ab <0.2 AI (0.0-0.9); Anti-Chromatin <0.2 AI (0.0-0.9); Anti-Jo <0.2 AI (0.0-0.9); Anti-Scleroderma-70 AB <0.2 AI (0.0-0.9); Anti-dsDNA Ab <1 IU/mL (0-9); RNP Ab <0.2 AI (0.0-0.9); SJOGREN'S Anti-SS-A test < 0.2 AI (0.0-0.9); SJOGREN'S Anti-SS-B test < 0.2 AI (0.0-0.9); Smith Ab <0.2 AI (0.0-0.9)
[2023-02-21 14:09] LABS: Endomysial Antibody IgA Negative (Negative); Immunoglobulin A 99 mg/dL (87-352); t-Transglutaminase IgA <2 U/mL (0-3)
[2023-02-22 15:08] LABS: Albumin 4.1 g/dL (2.9-4.4); Alpha-1-Globulins 0.2 g/dL (0.0-0.4); Alpha-2-Globulins 0.6 g/dL (0.4-1.0); Cytoplasmic Ab (C-ANCA) <1:20 titer (Neg:<1:20); Gamma Globulin 0.9 g/dL (0.4-1.8); Immunoglobulin A 98 mg/dL (87-352); Immunoglobulin E 38 IU/mL (6-495); Immunoglobulin G 923 mg/dL (586-1602); Immunoglobulin M 34 mg/dL (26-217); PROEL- TOTAL PROTEIN 6.9 g/dL (6.0-8.5); Perinuclear Ab (P-ANCA) <1:20 titer (Neg:<1:20)
== END | disposition home or self-care (01) ==
LOC: LAB 09:12
PROVIDERS: PCP Family Medicine; Referring Provider Nurse Practitioner Adult Health; Visit Provider Nurse Practitioner Adult Health
DX: R19.8 Other specified symptoms and signs involving the digestive system and abdomen (principal); R10.9 Unspecified abdominal pain; Z83.79 Family history of other diseases of the digestive system
CPT/HCPCS: 36415; 80053; 82784; 82785; 83516; 83615; 84165; 85025; 85652; 86140; 86225; 86235; 86255; 86256; 86334

== ENCOUNTER → 2023-02-24 | Outpatient (CLI) | payer OTHER, SELFPAY | END | disposition home or self-care (01) | PROVIDERS: PCP Family Medicine; Referring Provider Nurse Practitioner Adult Health; Visit Provider Nurse Practitioner Adult Health | DX: R19.8 Other specified symptoms and signs involving the digestive system and abdomen (principal); Z83.79 Family history of other diseases of the digestive system | CPT/HCPCS: 36415 ==

== ENCOUNTER → 2023-02-25 | Outpatient (CLI) | payer OTHER, SELFPAY ==
[2023-03-05 21:07] LABS: Calprotectin, Stool 76 ug/g (0-120)
== END | disposition home or self-care (01) ==
LOC: LABSPEC 09:27
PROVIDERS: PCP Family Medicine; Referring Provider Nurse Practitioner Adult Health; Visit Provider Nurse Practitioner Adult Health
DX: K58.9 Irritable bowel syndrome, unspecified (principal); R19.8 Other specified symptoms and signs involving the digestive system and abdomen; R10.9 Unspecified abdominal pain; Z83.79 Family history of other diseases of the digestive system
CPT/HCPCS: 83630; 83993

== ENCOUNTER → 2023-03-01 | Outpatient (CLI) | payer OTHER, SELFPAY ==
--- NOTE | 2023-03-01 15:53 | CT_ITS ---
STUDY: CT ABDOMEN AND PELVIS WITH CONTRAST REASON FOR EXAM: Female, 57 years old. upper and lower abd pain, change in bowels -- oral and IV RADIATION DOSAGE (If Supplied By Facility): CTDIvol = ( 14.63 ) mGy, DLP = ( 1036.34 ) mGycm TECHNIQUE: Transaxial images were obtained from the dome of the diaphragm to the symphysis pubis without oral contrast. Oral and amp; IV Readi-CAT and amp; 100mL Isovue-370 was administered. Sagittal and coronal images were reconstructed. Individualized dose optimization techniques were used for this CT. COMPARISON: December 23, 2016 FINDINGS: There is minor atelectasis within the dependent portion of the lower lobes. The visualized portions of the heart are within normal limits. Normal liver. Normal gallbladder and extrahepatic biliary system. Normal spleen. Normal pancreas. Normal bilateral adrenal glands. Normal right kidney. Normal left kidney. Normal visualized stomach. Normal small intestine. Diverticular changes of the distal descending and sigmoid colon without evidence for acute diverticulitis. No evidence for acute appendicitis Minor atherosclerotic changes of the aorta without evidence for aneurysm. Normal inferior vena cava. Normal retroperitoneum. Multiple tiny mesenteric nodes with very subtle stranding in the mesenteric fat which may be consistent with nonspecific enteric lymphadenitis Normal urinary bladder. Normal abdominal wall. Normal osseous structures. CT/Abdomen/Pelvis WITH Contrast IMPRESSION: Findings which may be consistent with nonspecific mesenteric lymphadenitis. Diverticular changes of the distal descending and sigmoid colon without evidence for acute diverticulitis No evidence for small bowel obstruction or acute appendicitis Electronically Signed: Gama Mccall MD at 18:16 EDT ,
== END | disposition home or self-care (01) ==
LOC: CT 15:51
PROVIDERS: PCP Family Medicine; Referring Provider Nurse Practitioner Adult Health; Visit Provider Nurse Practitioner Adult Health
DX: R10.9 Unspecified abdominal pain (principal); R19.8 Other specified symptoms and signs involving the digestive system and abdomen
CPT/HCPCS: 74177; Q9967

== ENCOUNTER 2023-04-12 05:22 | Day surgery (SDC) | payer OTHER, SELFPAY ==
[2023-04-12 05:54] VITALS: BP 103/73; PULSE 68; RESP 18; TEMP 36.8; O2SAT 99; BMI 29.4
[2023-04-12] MEDS: Lactated Ringers 1,000 ML 15 ML IV (06:04)
--- NOTE | 2023-04-12 06:30 | IMM_PTH ---
PATIENT: KOSTA GHOTRA LOC: EN U#:[id number] AGE/SX: 57/F ROOM: RE04/12/[address]: Dr. Lakhwinder Thomas DO : 1965 BED: DIS: 04/12/2023 SPEC #: [id number] RECD: 04/12/23 13:11 STATUS: TARA REJustin #: [id number] TATE: 04/12/23 06:[address]: Lakhwinder Thomas DEPT: IMMUNOHISTOCHEMISTRY RECD BY: Hamida Chapa ENTERED: 04/12/23 13:12 SP TYPE: IMMUNO OTHR DR: Dr. Yoshi Henderson DO Tissues: B - Stomach, NOS Procedures: H Pylori (initial) PHYSICIAN & INSTITUTION [place] [id number] SPECIMEN INFORMATION: Tissue Source: B - Antrum Clinical Info: Abdominal pain, change in bowel function Specimen Number: [id number] CPT code: 32844 METHODOLOGY: Deparaffinized sections of prefer/formalin-fixed tissue or PAP/DQ stained slides are incubated with monoclonal/polyclonal antibodies/oligonucleotide probes. Localization is made via biotin free immunoperoxidase method. Appropriate controls are performed and reacted as expected. Results on target cell population are indicated in the following table: RESULTS: ANTIBODY / CLONE RESULT Block B H Pylori (polyclonal) negative These tests were developed and their performance characteristics determined by [facility]. They may not have been cleared or approved by the U.S. Food and Drug Administration. The FDA has determined that such clearance or approval is not necessary. The above immunohistochemical/dualISH markers are ordered and reviewed by the Pathologist. INTERPRETATION: B. Antrum, biopsy: Negative for Helicobacter pylori organisms. AM:leeroy 04/13/2023
--- NOTE | 2023-04-12 06:30 | EGD_PTH ---
PATIENT: KOSTA GHOTRA LOC: EN U#:[id number] AGE/SX: 57/F ROOM: RE04/12/[address]: Dr. Lakhwinder Thomas DO : 1965 BED: DIS: 04/12/2023 SPEC #: [id number] RECD: 04/12/23 10:27 STATUS: TARA LAMBERTO #: [id number] TATE: 04/12/23 06:[address]: Lakhwinder Thomas DEPT: SURGICAL PATHOLOGY RECD BY: Meg Mchugh ENTERED: 04/12/23 11:13 SP TYPE: EGD BIOPSY OT DR: Dr. Yoshi Henderson DO Tissues: A - Duodenum, NOS B - Gastric mucous membrane C - Esophagus, NOS D - Ileum, NOS E - COLON BIOPSY F - COLON BIOPSY G - COLON BIOPSY Procedures: Special Stain Group II Surgery Specimen Level IV Alcian Blue/PAS (control) HEADER OPERATION: Colonoscopy, EGD (MAC), biopsy, polypectomy PRE-OP DIAGNOSIS: Abdominal pain, change in bowel function TISSUE SUBMITTED: A - Duodenum biopsy, B - Antrum biopsy for histo and H. pylori, C - Distal esophagus biopsy, D - Terminal ileum biopsy, E - Random colonic biopsy, F - Hepatic flexure polyp biopsy, G - Splenic flexure polyp MICROSCOPIC DIAGNOSIS A. Duodenum, biopsy: No pathologic change. B. Gastric antrum, biopsy: Mild chronic gastritis. See comment. C. Distal esophagus, biopsy: Gastroesophageal junctional mucosa with mild chronic inflammation. No evidence of goblet cell metaplasia. See comment. D. Terminal ileum, biopsy: No pathologic change. E. Colon, random biopsy: No pathologic change. F. Colonic polyp at hepatic flexure, biopsy: Focal hyperplastic change. G. Colonic polyp at splenic flexure, biopsy: Hyperplastic polyp. AM:leeroy 04/13/2023 COMMENT B. The results of immunohistochemistry for Helicobacter pylori will be reported separately ([id number]). C. Alcian blue/PAS stain with matched control supports the above diagnosis. MICROSCOPIC DESCRIPTION Slides are reviewed. GROSS DESCRIPTION A - Received in fixative is one container labeled with the patient's name and designated duodenum biopsy. The specimen consists of two irregular fragments of light wilson soft tissue that in aggregate measure 0.6 x 0.4 x 0.1 cm. The specimen is totally submitted in one cassette. B - Received in fixative is one container labeled with the patient's name and designated antrum biopsy. The specimen consists of multiple irregular fragments of light wilson soft tissue that in aggregate measure 1.0 x 0.5 x 0.1 cm. The specimen is totally submitted in one cassette. C - Received in fixative is one container labeled with the patient's name and designated distal esophagus biopsy. The specimen consists of two irregular fragments of light wilson soft tissue that in aggregate measure 0.6 x 0.4 x 0.1 cm. The specimen is totally submitted in one cassette. D - Received in fixative is one container labeled with the patient's name and designated terminal ileum biopsy. The specimen consists of multiple irregular fragments of light wilson soft tissue that in aggregate measure 2.0 x 0.5 x 0.1 cm. The specimen is totally submitted in one cassette. E - Received in fixative is one container labeled with the patient's name and designated random colonic biopsy. The specimen consists of multiple irregular fragments of light wilson soft tissue that in aggregate measure 2.0 x 0.6 x 0.1 cm. The specimen is totally submitted in one cassette. F - Received in fixative is one container labeled with the patient's name and designated hepatic flexure polyp biopsy. The specimen consists of one irregular fragment of light wilson soft tissue that measures 0.5 x 0.4 x 0.1 cm. The specimen is totally submitted in one cassette. G - Received in fixative is one container labeled with the patient's name and designated splenic flexure polyp. The specimen consists of one irregular fragment of light wilson soft tissue that measures 0.7 x 0.5 x 0.1 cm. Also present are small fragments of wilson soft tissue measuring 0.2 x 0.2 x 0.1 cm. The specimen is totally submitted in one cassette. / SJ:rg 04/12/2023 TC:3 CPT: 38053 x7, 36369
--- NOTE | 2023-04-12 06:35 | HP.PCM_ITS ---
History and Physical Date of Admission: 04/12/23 abd pain Details: KOSTA GHOTRA, is a 57 F who presents to the office today to establish with Gastroenterology for 2 years of abdominal pain and bowel changes. She gets abdominal pains almost every day, both epigastric and lower abdomen. Epigastric pain is sharp, can feel like a severe spasm, doesn't radiate, lasts about 10 minutes, resolves after BM, no triggers she has been able to discern. The lower abd pain happens 70% of the time with the epigastric pain, sharp, also like a severe spasm, worse even than the epigastric pain, resolves after BM. Can pass a lot of gas. The lower abdominal pain is severe it makes her sweat. The bowels have been abnormal for the past 2 years also. Can be either constipation or diarrhea, can start with constipation then become diarrhea. Bowels are urgent. The stool caliber varies time to time, can be very small caliber. The abdominal pains can wake her up. No melena or hematochezia. She reports my stomach feels raw. Long hx acid reflux, used to be controlled with pantoprazole, she switched to lansoprazole since pantoprazole no longer effective. Lansoprazole is usually effective at preventing reflux. No relief with sucralfate. C/o bloating in upper abdomen, pressure pushes up into chest, worse in evening after dinner. RUQ feels sore under ribs, bothers her at night. No nausea or vomiting, no dysphagia. 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 She has taken CP which may be musculoskeletal, indomethacin helped when she was on it. She reports fatigue, weight gain Colonoscopy age 49--polyp 09/2022 labs: cbc unremarkable, normal liver enzymes, nl ESR, crp 8.75, nl lipase 11/2022 RUQ US: fatty liver Her son has Crohn's disease ROS Const Constitutional: Positive for fatigue and weight change ENT ENT: No difficulty swallowing Gastro GI: Positive for abdominal pain, bloating, change in bowel habits, constipation, diarrhea, heartburn and nausea/dyspepsia; No belching, change in stool character, coffee ground emesis, cramping, difficulty swallowing, feeling full early, excessive flatus, incontinent of stools, Vomiting blood/hematemesis, Blood in stool, loose stools, Black,tarry stools, pain with swallowing, vomiting or other Musc Musculoskeletal: Positive for muscle cramps, muscle weakness and stiffness; No joint pain Skin Skin: No yellowing of the eye or itchy eyes Psych Psychiatric: No anxiety and No depression Endo Endocrine: Positive for fatigue and weight change Aller/Imm Allergy/Immunologic: No itchy eyes Moreno/Lymp Hematologic/Lymphatic: Positive for easy bruising; No easy bleeding Exam Const General: cooperative, comfortable and no acute distress Orientation: alert, awake and oriented x3 HENMT Head: normal to inspection Eyes Sclera: sclerae normal Resp Effort & Inspection: normal respiratory effort GI Inspection: normal to inspection Palpation: soft, no hepatosplenomegaly, no masses and tender in the epigastrum, in the LLQ, in the RLQ, in the LUQ and in the RUQ Skin General: no rashes or lesions noted Neuro Gait: normal gait Psych Mood: congruent mood Quality Reporting Tobacco Screening ([facility] 138) Smoking Status: Former smoker Assessment and Plan Assessment and Plan (1) Abdominal pain: Status: Chronic Plan: 57 yr old female with 2 yrs of severe epigastric and lower abdominal pain associated with urgent BMs which can be constipation or diarrhea, change in stool caliber. She has significant abdominal tenderness on exam. Son has Crohn's disease. Will eval for Crohn's/UC, celiac, other autoimmune; blood and stool tests. CT abd pel w/ oral and IV. EGD and colonoscopy. f/u in office 2 wks later. (2) Change in bowel function: Status: Chronic Plan: see above (3) FH: Crohn's disease: Status: Acute Plan: I have examined the patient and the H&P has been reviewed. There are no clinical changes since date of exam.
[2023-04-12 07:15] VITALS: BP 103/73; BP 92/67; PULSE 67; RESP 16; TEMP 36.5; O2SAT 98
--- NOTE | 2023-04-12 07:17 | OP.EGD_ITS ---
Patient Name: Aleyda Singh Procedure Date: 04/12/2023 6:30 AM Date of : 1965 Age: 57 Procedure: Upper GI endoscopy Indications: Epigastric abdominal pain, Functional Dyspepsia, Heartburn Providers: Lakhwinder Thomas DO Referring MD: Lakhwinder Thomas DO Medicines: Monitored Anesthesia Care Patient Profile: This is a 57 year old female. Refer to note in patient chart for documentation of history and physical. Patient has symptoms of chronic dyspepsia and chronic heartburn. Complications: No immediate complications. Procedure: Pre-Anesthesia Assessment: - Prior to the procedure, a History and Physical was performed, and patient medications and allergies were reviewed. The patient is competent. The risks and benefits of the procedure and the sedation options and risks were discussed with the patient. All questions were answered and informed consent was obtained. Patient identification and proposed procedure were verified by the physician. Mental Status Examination: normal. Airway Examination: normal oropharyngeal airway and neck mobility. Respiratory Examination: clear to auscultation. CV Examination: normal. Prophylactic Antibiotics: The patient does not require prophylactic antibiotics. Prior Anticoagulants: The patient has taken no previous anticoagulant or antiplatelet agents. After reviewing the risks and benefits, the patient was deemed in satisfactory condition to undergo the procedure. The anesthesia plan was to use monitored anesthesia care (MAC). Immediately prior to administration of medications, the patient was re-assessed for adequacy to receive sedatives. The heart rate, respiratory rate, oxygen saturations, blood pressure, adequacy of pulmonary ventilation, and response to care were monitored throughout the procedure. The physical status of the patient was re-assessed after the procedure. After obtaining informed consent, the endoscope was passed under direct vision. Throughout the procedure, the patient's blood pressure, pulse, and oxygen saturations were monitored continuously. The pediatric colonoscope was introduced through the mouth, and advanced to the second part of duodenum. The upper GI endoscopy was accomplished without difficulty. The patient tolerated the procedure well. Scope In: 6:41:27 AM Scope Out: 6:46:31 AM Total Procedure Duration Time 0 hours 5 minutes 4 seconds Findings: The Z-line was irregular and was found 39 cm from the incisors. Biopsies were taken with a cold forceps for histology. Verification of patient identification for the specimen was done. Estimated blood loss was minimal. Patchy mildly erythematous mucosa without bleeding was found in the gastric antrum and in the prepyloric region of the stomach. Biopsies were taken with a cold forceps for histology. Verification of patient identification for the specimen was done. Estimated blood loss was minimal. No gross lesions were noted in the second portion of the duodenum. Biopsies were taken with a cold forceps for histology. Verification of patient identification for the specimen was done. Estimated blood loss was minimal. Impression: - Z-line irregular, 39 cm from the incisors. Biopsied. - Erythematous mucosa in the antrum and prepyloric region of the stomach. Biopsied. - No gross lesions in the second portion of the duodenum. Biopsied. Recommendation: - Discharge patient to home. - Resume previous diet. - Continue present medications. - Await pathology results. Procedure Code(s): --- Professional --- 66398, Esophagogastroduodenoscopy, flexible, transoral; with biopsy, single or multiple CPT copyright 2017 [employer]. All rights reserved. The codes documented in this report are preliminary and upon driver recruiter review may be revised to meet current compliance requirements. Lakhwinder Thomas DO 04/12/2023 7:16:01 AM This report has been signed electronically. Number of Addenda: 0 Note Initiated On: 04/12/2023 6:30 AM
--- NOTE | 2023-04-12 07:17 | OP.CCLET_ITS ---
04/12/2023 Yoshi Henderson [address] [place] [address] Re : Upper GI endoscopy procedure for Aleyda Singh Dear Dr. Henderson This procedure was performed on Wednesday, April 12, 2023. My impressions and recommendations are as follows: Impressions : - Z-line irregular, 39 cm from the incisors. Biopsied. - Erythematous mucosa in the antrum and prepyloric region of the stomach. Biopsied. - No gross lesions in the second portion of the duodenum. Biopsied. Recommendations : - Discharge patient to home. - Resume previous diet. - Continue present medications. - Await pathology results. My findings are described in the full procedure note, which is enclosed. If I can be of further assistance, please feel free to contact me at . Sincerely, Lakhwinder Thomas, 04/12/2023 7:16:01 AM This report has been signed electronically.
[2023-04-12 07:20] VITALS: BP 102/69; BP 103/73; PULSE 71; RESP 16; O2SAT 97
--- NOTE | 2023-04-12 07:22 | OP.COLON_ITS ---
Patient Name: Aleyda Singh Procedure Date: 04/12/2023 6:47 AM Date of : 1965 Age: 57 Procedure: Colonoscopy Indications: Generalized abdominal pain, Clinically significant diarrhea of unexplained origin Providers: Lakhwinder Thomas DO Referring MD: Lakhwinder Thomas DO Medicines: Monitored Anesthesia Care Patient Profile: This is a 57 year old female. Refer to note in patient chart for documentation of history and physical. Patient has symptoms of chronic dyspepsia and chronic heartburn. Last Colonoscopy: date unknown. Unable to locate last colonoscopy report. Complications: No immediate complications. Procedure: Pre-Anesthesia Assessment: - Prior to the procedure, a History and Physical was performed, and patient medications and allergies were reviewed. The patient is competent. The risks and benefits of the procedure and the sedation options and risks were discussed with the patient. All questions were answered and informed consent was obtained. Patient identification and proposed procedure were verified by the physician. Mental Status Examination: normal. Airway Examination: normal oropharyngeal airway and neck mobility. Respiratory Examination: clear to auscultation. CV Examination: normal. Prophylactic Antibiotics: The patient does not require prophylactic antibiotics. Prior Anticoagulants: The patient has taken no previous anticoagulant or antiplatelet agents. After reviewing the risks and benefits, the patient was deemed in satisfactory condition to undergo the procedure. The anesthesia plan was to use monitored anesthesia care (MAC). Immediately prior to administration of medications, the patient was re-assessed for adequacy to receive sedatives. The heart rate, respiratory rate, oxygen saturations, blood pressure, adequacy of pulmonary ventilation, and response to care were monitored throughout the procedure. The physical status of the patient was re-assessed after the procedure. After I obtained informed consent, the scope was passed under direct vision. Throughout the procedure, the patient's blood pressure, pulse, and oxygen saturations were monitored continuously. The pediatric colonoscope was introduced through the anus and advanced to the terminal ileum. The terminal ileum, ileocecal valve, appendiceal orifice, and rectum were photographed. Scope In: 6:48:37 AM Scope Withdrawal Time 0 hours 15 minutes 47 seconds Scope Out: 7:07:53 AM Total Procedure Duration Time 0 hours 19 minutes 16 seconds Findings: A patchy area of the distal ileum was congested. Biopsies were taken with a cold forceps for histology. Verification of patient identification for the specimen was done. Estimated blood loss was minimal. A few small-mouthed diverticula were found in the recto-sigmoid colon. A 5 mm polyp was found in the hepatic flexure. The polyp was sessile. The polyp was removed with a cold snare. Resection and retrieval were complete. Verification of patient identification for the specimen was done. Estimated blood loss was minimal. A 8 mm polyp was found in the splenic flexure. The polyp was sessile. The polyp was removed with a hot snare. Resection and retrieval were complete. Verification of patient identification for the specimen was done. Estimated blood loss was minimal. An area of mildly congested mucosa was found in the sigmoid colon, in the descending colon and in the transverse colon. Biopsies were taken with a cold forceps for histology. Verification of patient identification for the specimen was done. Estimated blood loss was minimal. Impression: - Congested mucosa in the distal ileum. Biopsied. - Diverticulosis in the recto-sigmoid colon. - One 5 mm polyp at the hepatic flexure, removed with a cold snare. Resected and retrieved. - One 8 mm polyp at the splenic flexure, removed with a hot snare. Resected and retrieved. - Congested mucosa in the sigmoid colon, in the descending colon and in the transverse colon. Biopsied. Recommendation: - Discharge patient to home. - Resume previous diet. - Continue present medications. - Await pathology results. - Repeat colonoscopy in 5 years for surveillance. - Return to GI office. Procedure Code(s): --- Professional --- 55199, Colonoscopy, flexible; with removal of tumor(s), polyp(s), or other lesion(s) by snare technique 41599, 58, Colonoscopy, flexible; with biopsy, single or multiple CPT copyright 2017 [employer]. All rights reserved. The codes documented in this report are preliminary and upon laborer pole crew review may be revised to meet current compliance requirements. Lakhwinder Thomas DO 04/12/2023 7:21:38 AM This report has been signed electronically. Number of Addenda: 0 Note Initiated On: 04/12/2023 6:47 AM
--- NOTE | 2023-04-12 07:23 | OP.CCLET_ITS ---
04/12/2023 Yoshi Henderson [address] [facility] [place] [address] Re : Colonoscopy procedure for Aleyda Amezquitaer Dear Dr. Henderson This procedure was performed on Wednesday, April 12, 2023. My impressions and recommendations are as follows: Impressions : - Congested mucosa in the distal ileum. Biopsied. - Diverticulosis in the recto-sigmoid colon. - One 5 mm polyp at the hepatic flexure, removed with a cold snare. Resected and retrieved. - One 8 mm polyp at the splenic flexure, removed with a hot snare. Resected and retrieved. - Congested mucosa in the sigmoid colon, in the descending colon and in the transverse colon. Biopsied. Recommendations : - Discharge patient to home. - Resume previous diet. - Continue present medications. - Await pathology results. - Repeat colonoscopy in 5 years for surveillance. - Return to GI office. My findings are described in the full procedure note, which is enclosed. If I can be of further assistance, please feel free to contact me at . Sincerely, Lakhwinder Thomas, 04/12/2023 7:21:38 AM This report has been signed electronically.
[2023-04-12 07:25] VITALS: BP 103/73; BP 97/70; PULSE 63; RESP 18; O2SAT 98
[2023-04-12 07:30] VITALS: BP 103/73; BP 98/61; PULSE 62; RESP 16; TEMP 36.5; O2SAT 95
[2023-04-12 07:51] VITALS: BP 103/73
== END 2023-04-12 07:53 | disposition home or self-care (01) ==
LOC: EN 05:27 → AC 05:29
PROVIDERS: PCP Family Medicine; Referring Provider Family Medicine; Visit Provider Internal Medicine Gastroenterology
PROC: 0DJD8ZZ Inspection of Lower Intestinal Tract, Via Natural or Artificial Opening Endoscopic (ICD-10-PCS; CPT 45378; principal; 2023-04-12 06:25)
DX: K63.5 Polyp of colon (principal); K57.90 Diverticulosis of intestine, part unspecified, without perforation or abscess without bleeding; K63.89 Other specified diseases of intestine; R19.7 Diarrhea, unspecified; Z87.891 Personal history of nicotine dependence; R10.13 Epigastric pain; K29.50 Unspecified chronic gastritis without bleeding
CPT/HCPCS: 45385; 45380; 43239; 88305; 88313; 88342; J7120; J2405

== ENCOUNTER → 2023-05-06 | Outpatient (CLI) | payer OTHER, SELFPAY ==
--- NOTE | 2023-05-06 10:45 | RAD_ITS ---
INDICATION: left foot contusion EXAMINATION/TECHNIQUE: X-RAY - LEFT XR Foot Min 3 Views 3 VIEWS COMPARISON: Prior study dated: Right foot dated May 19, 2013 FINDINGS: SOFT TISSUES: No soft tissue swelling or gas. No radiopaque foreign body. BONES/JOINTS: There is an oblique fracture within the diaphysis of the fifth proximal phalanx. No intra-articular involvement is visualized. Normal alignment. There are mild degenerative changes of the midfoot. No sclerotic or destructive changes observed. RAD/Foot min 3 Views IMPRESSION: Fifth proximal phalanx fracture. Degenerative changes. Electronically Signed: Krystal Queen MD at 11:01 EDT ,
== END | disposition home or self-care (01) ==
LOC: MTRAD 10:43
PROVIDERS: PCP Family Medicine; Referring Provider Physician Assistant Surgical; Visit Provider Physician Assistant Surgical
DX: S92.592A Other fracture of left lesser toe(s), initial encounter for closed fracture (principal)
CPT/HCPCS: 73630

== ENCOUNTER 2023-06-15 08:49 | Outpatient (CLI) | payer OTHER, SELFPAY ==
[2023-06-15 09:23] LABS: Absolute Lymphocyte Count 1.42 X10^3/uL (0.83-4.51); Absolute Neutrophil Count 2.8 X10^3/uL (2.0-7.7); Basophil# 0.02 X10^3/uL; Basophil% 0.4 % (0-1); Eosinophil# 0.08 X10^3/uL; Eosinophils% 1.7 % (0-5); Hematocrit 40.6 % (37-47); Hemoglobin 13.9 g/dL (12.0-15.0); Lymphocyte # 1.42 X10^3/ul (0.83-4.51); Lymphocyte % 30.1 % (19-41); Mean Corp Hgb Conc 34.2 g/dL (32-36); Mean Corpuscular Hgb 30.5 pg (27.0-32.0); Mean Platelet Vol. 10.2 fl (6.2-12.0); Monocyte# 0.36 X10^3/uL; Monocyte% 7.6 % (0-10); NRBC Flagged by Analyzer 0 % (0-5); Neutrophil # 2.82 X10^3/uL (2.7-7.7); Neutrophil % 59.8 % (47-70); Platelet Count 179 K/mm3 (150-450); RBC Distribution Width SD 38.5 fl (35.1-43.9); Red Blood Count 4.56 M/mm3 (4.2-5.4); White Blood Count 4.7 K/mm3 (4.4-11.0)
[2023-06-15 10:09] LABS: ALB/GLOB Ratio 1.3 RATIO (0.9-2.4); AST(SGOT) 24 U/L (15-37); Alanine Aminotransfer ALT/SGPT 30 U/L (13-56); Albumin, Serum 4.2 g/dL (3.2-5.0); Alkaline Phosphatase 82 U/L (45-117); Anion Gap 4 (5-15); BUN 10 mg/dL (7-18); BUN/Creat Ratio 10.8 RATIO (10-20); Calcium,Total 9.5 mg/dL (8.5-10.1); Chloride 105 mmol/L (98-107); Creatinine, Serum 0.93 mg/dL (0.55-1.02); EST Glomerular Filtration Rate 66 mL/min (>60); Est Glom Filt Rate - Afr Amer 80 mL/min (>60); Estradiol 11.1 pg/mL; Ferritin 35 ng/mL (8-252); Follicle Stimulating Hormone 59.7 mIU/mL; Globulin 3.2 g/dL (2.2-4.2); Glucose 99 mg/dL (74-106); Iron 92 ug/dL (50-170); Iron Binding Capacity,Total 361 ug/dL (250-450); Luteinizing Hormone 28.2 mIU/mL; Magnesium 2.5 mg/dL (1.6-2.6); PERCENT IRON SATURATION 25.5 % (15.0-55.0); Potassium 4.1 mmol/L (3.5-5.1); Protein, Total 7.4 g/dL (6.4-8.2); Sodium Level 139 mmol/L (136-145); T4 Free Direct 1.02 ng/dL (0.76-1.46); Thyroid Stim Hormone (TSH) 1.04 uIU/mL (0.358-3.74)
[2023-06-15 12:37] LABS: Hemoglobin A1c 5.3 % (3.8-5.6)
[2023-06-15 13:09] LABS: Vitamin B12 > 2000 pg/mL (211-911); Vitamin D,25 Hydroxy 40.6 ng/mL
[2023-06-15 13:38] LABS: Progesterone Level < 0.21 ng/mL (See Comment)
--- OUTSIDE RECORDS SUMMARY | 2023-06-16 02:10 | XMS RPT_ITS ---
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 Name Role Phone KELSEY HENDERSON Referring Unavailable EVAN, KELSEY A Primary Care Unavailable EMMY, UMESH Attending Unavailable EVAN, KELSEY A Primary Care Unavailable UMESH BOOTH Referring Unavailable DYLON SLAUGHTER Attending Unavailable EVAN, KELSEY A Referring Unavailable EVAN, KELSEY A Primary Care Unavailable EVAN, KELSEY A Primary Care Unavailable DYLON SLAUGHTER Referring Unavailable DYLON SLAUGHTER Attending Unavailable PROBLEMS DATE TYPE CONDITION / CODE ATTENDING STATUS [facility] 12/06/2022 Active Sacroiliitis (HC C) / M46.1(ICD-10) UMESH BOOTH Active [facility] 12/06/2022 Active Tarlov cysts / G96.191(ICD-10) UMESH BOOTH Active [facility] 06/22/2022 Admitting diagnosis Follow-up / 145() DYLON SLAUGHTER Active [facility] 06/22/2022 Admitting diagnosis Other specified postprocedural states / Z98.890(ICD-10) DYLON SLAUGHTER Active [facility] PROCEDURES No Procedure Records Found RESULTS CNPN Observed: 01/04/2023 12:00 AM Status: COMPLETED Source: [facility] Telephone (AGSPINE3) KOSTA SINGH ([id number]) 1965 F Date Time Provider Department 01/04/23 KANA TEJADA [email or web address] During your visit today, we recorded the following information about you: Ti Mayfield 01/04/2023 9:06 AM Signed Received a referral from Umesh Booth PA-C for patient to be seen for Sacroiliitis Please call and get patient scheduled Ti Mayfield [employer] [facility] [place] [address] [place] [address] P: [phone] F: [phone] Marie Nava 01/04/2023 9:50 AM Signed Called patient to schedule no answer left vm Marie Nava Allergies As of Date: 01/04/2023 Noted Allergy Reaction ATORVASTATIN 05/25/2022 17 - Myalgia BACTRIM DS (SULFAMETHOXAZOLE-TRIM*02/13/2007 4 - Hives erythromcin [Other] 02/13/2007 4 - Hives ERYTHROMYCIN 12/06/2022 4 - Hives ESOMEPRAZOLE 04/14/2022 14 - Other: See Comments GABAPENTIN 04/14/2022 9 - Itching MORPHINE 02/13/2007 8 - GI Upset PENICILLINS 02/13/2007 4 - Hives SULFAMETHOXAZOLE 04/14/2022 9 - Itching TETRACYCLINE 12/06/2022 9 - Itching 4 - Hives TRIMETHOPRIM 04/14/2022 9 - Itching Date Reviewed: 12/06/2022 Reviewed by: Umesh Booth PA-C - Fully Assessed Reason for Visit: New Patient [172] Prescriptions as of 01/04/2023 - acetaminophen (TYLENOL) 325 mg tablet Take 975 mg by mouth every 6 hours as needed. - aspirin 81 mg chewable tablet Take 81 mg by mouth. - azithromycin (ZITHROMAX) 250 mg tablet Take by mouth. - cholecalciferol, Vitamin D3, (VITAMIN D3) 1,250 mcg (50,000 unit) cap capsule Take by mouth. - diclofenac potassium (CATAFLAM) 50 mg tablet Take 50 mg by mouth twice daily. - clopidogrel (PLAVIX) 75 mg tablet Take by mouth. - doxycycline monohydrate (MONODOX) 100 mg capsule TAKE ONE TABLET BY MOUTH TWICE DAILY FOR 10 DAYS - lansoprazole (PREVACID) 30 mg capsule Take 30 mg by mouth once daily. - mecobalamin, vitamin B12, 1,000 mcg chew Take by mouth. - fluorometholone (FML LIQUID FILM) 0.1 % ophthalmic suspension 1 Drop every 4 hours. - cyclobenzaprine (FLEXERIL) 10 mg tablet Take 1 tablet by mouth three times daily as needed for muscle spasm (or pain). - pantoprazole DR (PROTONIX) 20 mg tablet Take 20 mg by mouth once daily. - iv contrast (radiology procedure) CT KIDNEY/PEL- Inject, intravenously, once for 1 dose.No IV access, insert saline lock prior to the beginning of sedation, infusion, injection of imaging exam. Discontinue saline lock post exam. If Pt. has a central line or IVAD, may access for administration according to line specific nursing protocol. Once exam is complete flush line and de-access according to line specific nursing protocol in the CT contrast administration guidelines link. - Iothalamate Meglumine (CONRAY) 60 % soln Mix with 0.5 mL of sterile water for a total injection volume of 1.0 mL. - PANTOPRAZOLE SODIUM (PROTONIX ORAL) Take by mouth. Problem List As Of Date 01/04/2023 Noted Resolved ESOPHAGEAL REFLUX [K21.9] 12/02/2008 Encounter Status:Closed by TI BRADFORD on 01/04/23 XR LUMBAR 4V AP/LAT/ FLEX/EXT Observed: 12/06/2022 2:31 PM Status: F [facility]: [facility] * * *Final Report* * * DATE OF EXAM: Dec 06 2022 2:31PM [id number] - XR LUMBAR 4V AP/LAT/ FLEX/EXT / PROCEDURE REASON: Sacroiliitis (HCC) * * * * Physician Interpretation * * * * EXAM TITLE: XR LUMBAR 4V AP/LAT/ FLEX/EXT DATE: 12/06/2022 COMPARISON: Lumbar spine MRI 02/12/2022 CLINICAL INDICATION/HISTORY: Low back pain TECHNIQUE: AP, neutral lateral, flexion lateral, extension lateral views of the lumbar spine are presented. RESULT: There are five acj-[id number]-[id number] lumbar vertebra. No fracture or subluxations, no change in alignment with flexion/extension Moderate loss of disc height with endplate osteophyte formation L5-S1. Mild degenerative disc disease elsewhere throughout the remaining lumbar spine. Lower lumbar facet arthrosis No osseous destructive process. Atherosclerotic aortic calcifications. IMPRESSION: No acute findings radiographically. Degenerative changes, including moderate degenerative disc disease L5-S1. 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 Author Type: Physician Residential Program Manager Type: Progress Notes Filed: 12/06/2022 2:22 PM Note Text: NEUROSURGERY CONSULT NOTE JOSE Grullonate of visit: December 06, 2022 Patient Name: Ms.Eva Pablito Singh Date of : 1965 Current Age: [age] year old Sex: female MRN/E# [id number] Chief Complaint: Patient presents with: New Patient Patient presents for evaluation of Tarlov cyst incidentally found on lumbar spine MRI HISTORY OF PRESENT ILLNESS : The patient is a 57 year old female who is referred by Dr. Kelsey Henderson for neurosurgical evaluation. HPI This is a very pleasant 57-year-old female who comes in with a 1 year history of right buttock pain that started without inciting event. She denies any radicular symptoms. No extremity paresthesias, motor weakness or low back pain. Symptoms are exacerbated by sitting, driving and standing. Symptoms improve with walking. She denies any recent injuries or trauma. She previously underwent lumbar spine MRI which showed Tarlov cyst. She is here for further evaluation. On examination she has full motor strength throughout. No abnormal reflexes. Negative straight leg raise on the right. She is tender over her right SI joint to palpation. She states this is the same pain that she has experienced over the past year. Symptoms: Right buttock pain DERMATOMAL DISTRIBUTION: None PREVIOUS CONSERVATIVE TREATMENTS: None PREVIOUS SURGERY: No prior history of spine surgery PAIN EVALUATION 12/05/2022 0659 Pain Level: 6 Pain Location: Back-Lower Description: Sharp;Sore;Spasm;Stabbing;Tightness Duration Amount of Time: 10 Duration Units: Minutes Frequency: Intermittent Intervention/Comfort measure: Relaxation PAST MEDICAL HISTORY Diagnosis Date Cystitis, interstitial GERD (gastroesophageal reflux disease) PAST SURGICAL HISTORY Procedure Laterality Date DELIVERY ONLY 09/12/1993 , low cervical CONIZATION CERVIX W/WO DANDC RPR ELTRD EXC 90's LAPS ABD PRTMANDOMENTUM DX W/WO SPEC BR/WA SPX 80's Laparoscopy-pelvic pain LIG/TRNSXJ FLP TUBE ABDL/VAG APPR UNI/BI Tubal ligation PT ED [facility]ART [facility] VASCULAR 05/2021 Social History Tobacco Use Smoking status: Former Packs/day: 1.00 Years: 20.00 Pack years: 20.00 Types: Cigarettes Quit date: 02/13/2006 Years since quittin.8 Smokeless tobacco: Never Vaping Use Vaping Use: Never used Substance Use Topics Alcohol use: Yes Comment: socially Drug use: No FAMILY HISTORY Problem Relation Age of Onset Cancer Mother LUNG Coronary Artery Disease Father Emphysema Mother Heart Father Lipids Father Thyroid Mother ALLERGIES Allergen Reactions Atorvastatin Myalgia Bactrim Ds [Sulfame* Hives Erythromcin [Other] Hives Erythromycin Hives Esomeprazole Other: See Comments Gabapentin Itching Morphine GI Upset Penicillins Hives Sulfamethoxazole Itching Tetracycline Itching, Hives Trimethoprim Itching Current Outpatient Medications Medication Sig Dispense Refill acetaminophen (TYLENOL) 325 mg tablet Take 975 mg by mouth every 6 hours as needed. cholecalciferol, Vitamin D3, (VITAMIN D3) 1,250 mcg (50,000 unit) cap capsule Take by mouth. lansoprazole (PREVACID) 30 mg capsule Take 30 mg by mouth once daily. mecobalamin, vitamin B12, 1,000 mcg chew Take by mouth. fluorometholone (FML LIQUID FILM) 0.1 % ophthalmic suspension 1 Drop every 4 hours. aspirin 81 mg chewable tablet Take 81 mg by mouth. (Patient not taking: Reported on 12/06/2022) azithromycin (ZITHROMAX) 250 mg tablet Take by mouth. (Patient not taking: Reported on 12/06/2022) diclofenac potassium (CATAFLAM) 50 mg tablet Take 50 mg by mouth twice daily. (Patient not taking: Reported on 12/06/2022) clopidogrel (PLAVIX) 75 mg tablet Take by mouth. (Patient not taking: Reported on 12/06/2022) doxycycline monohydrate (MONODOX) 100 mg capsule TAKE ONE TABLET BY MOUTH TWICE DAILY FOR 10 DAYS (Patient not taking: Reported on 12/06/2022) cyclobenzaprine (FLEXERIL) 10 mg tablet Take 1 tablet by mouth three times daily as needed for muscle spasm (or pain). (Patient not taking: Reported on 12/06/2022) [address] (PROTONIX) 20 mg tablet Take 20 mg by mouth once daily. (Patient not taking: Reported on 12/06/2022) iv contrast (radiology procedure) CT KIDNEY/PEL- Inject, intravenously, once for 1 dose.No IV access, insert saline lock prior to the beginning of sedation, infusion, injection of imaging exam. Discontinue saline lock post exam. If Pt. has a central line or IVAD, may access for administration according to line specific nursing protocol. Once exam is complete flush line and de-access according to line specific nursing protocol in the CT contrast administration guidelines link. (Patient not taking: Reported on 12/06/2022) 1 Each 0 Iothalamate Meglumine (CONRAY) 60 % soln Mix with 0.5 mL of sterile water for a total injection volume of 1.0 mL. (Patient not taking: Reported on 12/06/2022) 0.5 mL 0 PANTOPRAZOLE SODIUM (PROTONIX ORAL) Take by mouth. (Patient not taking: Reported on 12/06/2022) No current facility-administered medications for this visit. REVIEW OF SYSTEMS Review of Systems Constitutional: Negative for activity change, chills, fatigue, fever and unexpected weight change. Musculoskeletal: Negative for back pain and gait problem. Neurological: Negative for weakness and numbness. OBJECTIVE: BP 109/78 Pulse 84 Ht 5' 7 (1.70m) Wt 194 lb 0.1 oz (88.0kg) SpO2 97% LMP 10/05/2010 BMI 30.38 kg/(m2). Physical Exam Neurological Exam Mental State : Alert, memory function unremarkable. Attention span and concentration Normal for patient's age. Recent and remote memory normal Orientation : Oriented to time place and person Higher Cortical Function : Intact speech and language. Spontaneous speech and comprehension normal. Fund of knowledge intact for pt level of education. Sensory : Normal Sensation in upper and lower extremities and trunk to touch and Noxious stimuli. Motor : Normal muscle tone and bulk. No tremor or uncontrollable movements No spasticity . Strength: Upper Extremities : R L Deltoid 5 5 Biceps 5 5 Triceps 5 5 Wrist Ext 5 5 Wrist Flx 5 5 Hand Int. 5 5 Lower Extremities : Hip Flexors 5 5 Hip Extensors 5 5 Hip Abductors 5 5 Hip Adductors 5 5 Quads 5 5 Hamstrings 5 5 Ankle dorsiflex 5 5 Ankle plantars 5 5 Heel Walking 5 5 Toe Walking 5 5 Reflexes : Biceps 2 2 Triceps 2 2 Wrist 2 2 Patellar 2 2 Achilles 2 2 Marquez's Neg Neg Plantars Neg Neg Cerebellar Function : Normal finger to nose and rapid alternating movements. No ataxia Gait and Station: Normal Data Review IMAGING STUDIES: MRI of the lumbar spine from February 12, 2022 shows mild degenerative changes at L5-S1 and L4-5. No canal or foraminal narrowing throughout lumbar spine. Incidental finding of Tarlov cysts. This involves the right lateral recess and sacrum. Personal review of medical records: I reviewed with the patient, history, physical exam, the images and the chart. ASSESSMENT/PLAN: 1. Sacroiliitis (HCC) - ICD9: 720.2, ICD10: M46.1 (primary diagnosis) - CONSULT TO PHYSICAL THERAPY - XR LUMBAR MOTION 4V AP/LAT/ FLEX/EXT 2. Tarlov cysts - ICD9: 355.9, ICD10: G96.191 This is a very pleasant 57-year-old female comes in with right buttock pain that started about a year ago. She has reproducible symptoms with palpation over her right SI joint in the office today. She does not have any true radicular symptoms. She underwent previous lumbar spine MRI which showed Tarlov cyst on the right at L5-S1 within the lateral recess as well as lower sacral region. She does not have any true radicular symptoms in the office today. I have explained the nature of Tarlov cyst to her at length. Her symptoms are more consistent with sacroiliitis. I have explained sacroiliitis using a lumbar spine model. I have discussed treatment options to include physical therapy as well as SI joint injection with pain management. She does not wish to pursue injection at this point and would like to try physical therapy. I have ordered therapy for her. I will see her back 6 weeks after therapy to reevaluate. I have explained to her she does not have any surgical needs at this point. She will call us with any concerns or questions. Umesh Booth PA-C CNOV Observed: 12/06/2022 1:30 PM Status: COMPLETED [facility]: [facility] Office Visit (NEAGCLM) KOSTA SINGH ([id number]) 1965 F Date Time Provider Department 12/06/22 1:30 PM UMESH BOOTH NENARINDERLM During your visit today, we recorded the following information about you: Pulse Blood pressure Weight Height 84/minute 109/78 88 kg 1.702 m Umesh Booth PA-C 12/06/2022 2:22 PM Signed NEUROSURGERY CONSULT NOTE Umesh Booth PA-C Date of visit: December 06, 2022 Patient Name: Ms.Eva Pablito Singh Date of : 1965 Current Age: [age] year old Sex: female MRN/E# [id number] Chief Complaint: Patient presents with: New Patient Patient presents for evaluation of Tarlov cyst incidentally found on lumbar spine MRI HISTORY OF PRESENT ILLNESS : The patient is a 57 year old female who is referred by Dr. Kelsey Henderson for neurosurgical evaluation. HPI This is a very pleasant 57-year-old female who comes in with a 1 year history of right buttock pain that started without inciting event. She denies any radicular symptoms. No extremity paresthesias, motor weakness or low back pain. Symptoms are exacerbated by sitting, driving and standing. Symptoms improve with walking. She denies any recent injuries or trauma. She previously underwent lumbar spine MRI which showed Tarlov cyst. She is here for further evaluation. On examination she has full motor strength throughout. No abnormal reflexes. Negative straight leg raise on the right. She is tender over her right SI joint to palpation. She states this is the same pain that she has experienced over the past year. Symptoms: Right buttock pain DERMATOMAL DISTRIBUTION: None PREVIOUS CONSERVATIVE TREATMENTS: None PREVIOUS SURGERY: No prior history of spine surgery PAIN EVALUATION 12/05/2022 0659 Pain Level: 6 Pain Location: Back-Lower Description: Sharp;Sore;Spasm;Stabbing;Tightness Duration Amount of Time: 10 Duration Units: Minutes Frequency: Intermittent Intervention/Comfort measure: Relaxation PAST MEDICAL HISTORY Diagnosis Date Cystitis, interstitial GERD (gastroesophageal reflux disease) PAST SURGICAL HISTORY Procedure Laterality Date DELIVERY ONLY 09/12/1993 , low cervical CONIZATION CERVIX W/WO DANDC RPR ELTRD EXC 90's LAPS ABD PRTMANDOMENTUM DX W/WO SPEC BR/WA SPX 80's Laparoscopy-pelvic pain LIG/TRNSXJ FLP TUBE ABDL/VAG APPR UNI/BI Tubal ligation PT ED HEART AND VASCULAR 05/2021 Social History Tobacco Use Smoking status: Former Packs/day: 1.00 Years: 20.00 Pack years: 20.00 Types: Cigarettes Quit date: 02/13/2006 Years since quittin.8 Smokeless tobacco: Never Vaping Use Vaping Use: Never used Substance Use Topics Alcohol use: Yes Comment: socially Drug use: No FAMILY HISTORY Problem Relation Age of Onset Cancer Mother LUNG Coronary Artery Disease Father Emphysema Mother Heart Father Lipids Father Thyroid Mother ALLERGIES Allergen Reactions Atorvastatin Myalgia Bactrim Ds [Sulfame* Hives Erythromcin [Other] Hives Erythromycin Hives Esomeprazole Other: See Comments Gabapentin Itching Morphine GI Upset Penicillins Hives Sulfamethoxazole Itching Tetracycline Itching, Hives Trimethoprim Itching Current Outpatient Medications Medication Sig Dispense Refill acetaminophen (TYLENOL) 325 mg tablet Take 975 mg by mouth every 6 hours as needed. cholecalciferol, Vitamin D3, (VITAMIN D3) 1,250 mcg (50,000 unit) cap capsule Take by mouth. lansoprazole (PREVACID) 30 mg capsule Take 30 mg by mouth once daily. mecobalamin, vitamin B12, 1,000 mcg chew Take by mouth. fluorometholone (FML LIQUID FILM) 0.1 % ophthalmic suspension 1 Drop every 4 hours. aspirin 81 mg chewable tablet Take 81 mg by mouth. (Patient not taking: Reported on 12/06/2022) azithromycin (ZITHROMAX) 250 mg tablet Take by mouth. (Patient not taking: Reported on 12/06/2022) diclofenac potassium (CATAFLAM) 50 mg tablet Take 50 mg by mouth twice daily. (Patient not taking: Reported on 12/06/2022) clopidogrel (PLAVIX) 75 mg tablet Take by mouth. (Patient not taking: Reported on 12/06/2022) doxycycline monohydrate (MONODOX) 100 mg capsule TAKE ONE TABLET BY MOUTH TWICE DAILY FOR 10 DAYS (Patient not taking: Reported on 12/06/2022) cyclobenzaprine (FLEXERIL) 10 mg tablet Take 1 tablet by mouth three times daily as needed for muscle spasm (or pain). (Patient not taking: Reported on 12/06/2022) [address] (PROTONIX) 20 mg tablet Take 20 mg by mouth once daily. (Patient not taking: Reported on 12/06/2022) iv contrast (radiology procedure) CT KIDNEY/PEL- Inject, intravenously, once for 1 dose.No IV access, insert saline lock prior to the beginning of sedation, infusion, injection of imaging exam. Discontinue saline lock post exam. If Pt. has a central line or IVAD, may access for administration according to line specific nursing protocol. Once exam is complete flush line and de-access according to line specific nursing protocol in the CT contrast administration guidelines link. (Patient not taking: Reported on 12/06/2022) 1 Each 0 Iothalamate Meglumine (CONRAY) 60 % soln Mix with 0.5 mL of sterile water for a total injection volume of 1.0 mL. (Patient not taking: Reported on 12/06/2022) 0.5 mL 0 PANTOPRAZOLE SODIUM (PROTONIX ORAL) Take by mouth. (Patient not taking: Reported on 12/06/2022) No current facility-administered medications for this visit. REVIEW OF SYSTEMS Review of Systems Constitutional: Negative for activity change, chills, fatigue, fever and unexpected weight change. Musculoskeletal: Negative for back pain and gait problem. Neurological: Negative for weakness and numbness. OBJECTIVE: BP 109/78 Pulse 84 Ht 5' 7 (1.70m) Wt 194 lb 0.1 oz (88.0kg) SpO2 97% LMP 10/05/2010 BMI 30.38 kg/(m2). Physical Exam Neurological Exam Mental State : Alert, memory function unremarkable. Attention span and concentration Normal for patient's age. Recent and remote memory normal Orientation : Oriented to time place and person Higher Cortical Function : Intact speech and language. Spontaneous speech and comprehension normal. Fund of knowledge intact for pt level of education. Sensory : Normal Sensation in upper and lower extremities and trunk to touch and Noxious stimuli. Motor : Normal muscle tone and bulk. No tremor or uncontrollable movements No spasticity . Strength: Upper Extremities : R L Deltoid 5 5 Biceps 5 5 Triceps 5 5 Wrist Ext 5 5 Wrist Flx 5 5 Hand Int. 5 5 Lower Extremities : Hip Flexors 5 5 Hip Extensors 5 5 Hip Abductors 5 5 Hip Adductors 5 5 Quads 5 5 Hamstrings 5 5 Ankle dorsiflex 5 5 Ankle plantars 5 5 Heel Walking 5 5 Toe Walking 5 5 Reflexes : Biceps 2 2 Triceps 2 2 Wrist 2 2 Patellar 2 2 Achilles 2 2 Marquez's Neg Neg Plantars Neg Neg Cerebellar Function : Normal finger to nose and rapid alternating movements. No ataxia Gait and Station: Normal Data Review IMAGING STUDIES: MRI of the lumbar spine from February 12, 2022 shows mild degenerative changes at L5-S1 and L4-5. No canal or foraminal narrowing throughout lumbar spine. Incidental finding of Tarlov cysts. This involves the right lateral recess and sacrum. Personal review of medical records: I reviewed with the patient, history, physical exam, the images and the chart. ASSESSMENT/PLAN: 1. Sacroiliitis (HCC) - ICD9: 720.2, ICD10: M46.1 (primary diagnosis) - CONSULT TO PHYSICAL THERAPY - XR LUMBAR MOTION 4V AP/LAT/ FLEX/EXT 2. Tarlov cysts - ICD9: 355.9, ICD10: G96.191 This is a very pleasant 57-year-old female comes in with right buttock pain that started about a year ago. She has reproducible symptoms with palpation over her right SI joint in the office today. She does not have any true radicular symptoms. She underwent previous lumbar spine MRI which showed Tarlov cyst on the right at L5-S1 within the lateral recess as well as lower sacral region. She does not have any true radicular symptoms in the office today. I have explained the nature of Tarlov cyst to her at length. Her symptoms are more consistent with sacroiliitis. I have explained sacroiliitis using a lumbar spine model. I have discussed treatment options to include physical therapy as well as SI joint injection with pain management. She does not wish to pursue injection at this point and would like to try physical therapy. I have ordered therapy for her. I will see her back 6 weeks after therapy to reevaluate. I have explained to her she does not have any surgical needs at this point. She will call us with any concerns or questions. Umesh Booth PA-C Referring Provider: KELSEY HENDERSON [[id number]] Allergies As of Date: 12/06/2022 Noted Allergy Reaction ATORVASTATIN 05/25/2022 17 - Myalgia BACTRIM DS (SULFAMETHOXAZOLE-TRIM*02/13/2007 4 - Hives erythromcin [Other] 02/13/2007 4 - Hives ERYTHROMYCIN 12/06/2022 4 - Hives ESOMEPRAZOLE 04/14/2022 14 - Other: See Comments GABAPENTIN 04/14/2022 9 - Itching MORPHINE 02/13/2007 8 - GI Upset PENICILLINS 02/13/2007 4 - Hives SULFAMETHOXAZOLE 04/14/2022 9 - Itching TETRACYCLINE 12/06/2022 9 - Itching 4 - Hives TRIMETHOPRIM 04/14/2022 9 - Itching Date Reviewed: 12/06/2022 Reviewed by: Umesh Booth PA-C - Fully Assessed Reason for Visit: New Patient [172] Primary Visit Diagnosis:Sacroiliitis (HCC) [M46.1] Other Visit Diagnosis:Tarlov cysts [G96.191] Order(s):CONSULT TO PHYSICAL THERAPY [9032] Order #: [id number]: 1 FUTURE XR LUMBAR MOTION 4V AP/LAT/ FLEX/EXT [[id number]] Order #: [id number] FUTURE Prescriptions as of 12/06/2022 - acetaminophen (TYLENOL) 325 mg tablet Take 975 mg by mouth every 6 hours as needed. - aspirin 81 mg chewable tablet Take 81 mg by mouth. - azithromycin (ZITHROMAX) 250 mg tablet Take by mouth. - cholecalciferol, Vitamin D3, (VITAMIN D3) 1,250 mcg (50,000 unit) cap capsule Take by mouth. - diclofenac potassium (CATAFLAM) 50 mg tablet Take 50 mg by mouth twice daily. - clopidogrel (PLAVIX) 75 mg tablet Take by mouth. - doxycycline monohydrate (MONODOX) 100 mg capsule TAKE ONE TABLET BY MOUTH TWICE DAILY FOR 10 DAYS - lansoprazole (PREVACID) 30 mg capsule Take 30 mg by mouth once daily. - mecobalamin, vitamin B12, 1,000 mcg chew Take by mouth. - fluorometholone (FML LIQUID FILM) 0.1 % ophthalmic suspension 1 Drop every 4 hours. - cyclobenzaprine (FLEXERIL) 10 mg tablet Take 1 tablet by mouth three times daily as needed for muscle spasm (or pain). - pantoprazole DR (PROTONIX) 20 mg tablet Take 20 mg by mouth once daily. - iv contrast (radiology procedure) CT KIDNEY/PEL- Inject, intravenously, once for 1 dose.No IV access, insert saline lock prior to the beginning of sedation, infusion, injection of imaging exam. Discontinue saline lock post exam. If Pt. has a central line or IVAD, may access for administration according to line specific nursing protocol. Once exam is complete flush line and de-access according to line specific nursing protocol in the CT contrast administration guidelines link. - Iothalamate Meglumine (CONRAY) 60 % soln Mix with 0.5 mL of sterile water for a total injection volume of 1.0 mL. - PANTOPRAZOLE SODIUM (PROTONIX ORAL) Take by mouth. Medication notes this encounter ACETAMINOPHEN 325 MG TABLET >> Chiquis Torres Ma 12/06/2022 1:25 PM >> CHIQUIS TORRES MA Dec 06, 2022 1:25 PM PRN Problem List As Of Date 12/06/2022 Noted Resolved ESOPHAGEAL REFLUX [K21.9] 12/02/2008 Encounter Status:Closed by UMESH BOOTH on 12/06/22 XR CHEST PA AND LATERAL Observed: 2021 4:35 PM Status: F Source: [facility] REPOSITORY EXAM: XR CHEST PA AND LATERA L, 06/22/2022 12:16 PM COMPARISON: May 16, 2022 CLINICAL INDICATIONS: s/p cardiac surgery RELEVANT CLINICAL HISTORY: Z98.890:Status post cardiac surgery FINDINGS: (Adequate technique) Implanted Devices: None Lungs: Clear, without mass, interstitial disease, or consolidation. Pleural Spaces: No pleural effusion. No pneumothorax. Mediastinum and Bhavana: Normal Cardiac silhouette and great vessels: Normal heart size. Unremarkable aorta. Chest Wall: Stable IMPRESSION: No acute cardiopulmonary disease RGIES DATE TYPE / CODE NAME / CODE REACTION SEVERITY SOURCE 12/06/2022 DRUG/[id number](SNOM ED CT) [facility] 12/06/2022 DRUG INGREDI/[id number](S NOMED CT) TETRACYCLINE ITCHING [facility] 05/25/2022 DRUG INGREDI/[id number](S NOMED CT) ATORVASTATIN Myalgia Med [facility] 04/14/2022 DRUG INGREDI/[id number](S NOMED CT) ESOMEPRAZOLE OTHER: SEE C [facility] 04/14/2022 DRUG INGREDI/[id number](S NOMED CT) GABAPENTIN ITCHING [facility] 04/14/2022 DRUG INGREDI/[id number](S NOMED CT) [facility] 04/14/2022 DRUG INGREDI/[id number](S NOMED CT) TRIMETHOPRIM ITCHING [facility] 02/13/2007 DRUG/[id number](SNOM ED CT) SULFAMETHOXAZOLE-TRIME THOPRIM [facility] 02/13/2007 Miscellaneous Allergy/[id number](S NOMED CT) OTHER [facility] 02/13/2007 DRUG INGREDI/[id number](S NOMED CT) MORPHINE GI UPSET [facility] 02/13/2007 Drug Class/[id number](SNO MED CT) PENICILLINS [facility] ENCOUNTERS ADMIT/DISCHARGE ACCOUNT NUMBER ADMITTING ENCOUNTER CLASS LOCATION SOURCE 12/06/2022 [id number] Ambulatory [facility] g:[facility] 12/06/2022/12/07/19 23 [id number] Ambulatory [facility] g:[facility] 06/22/2022 [id number] [facility] ng:RHCCTS [facility] 06/22/2022 [id number] [facility] ng:DHRDRS [facility] PAYERS ENCOUNTER GUARANTOR PAYER SUBSCRIBER SOURCE 12/06/2022 Primary Insurance:MMO SUPERMED PPOPolicy Number: [id number] taco Date:[id number] n Name:Taina Kenney MELISA: [id number] [address] 12/06/2022 Primary Insurance:MMO SUPERMED PPOPolicy Number: [id number] taco Date:7482-47-86Wsf n Name:Taina Kenney MELISA: [id number] [address] 06/22/2022 KOSTA Rolf SUÁREZB: [id number] [place] [id number]: ~[phone]) Primary Insurance:MMOPolic y Number: [id number] taco Date:5693-40-89Tpk n Name:MANAGED CARE KOSTA Bansal MELISA: [id number] [place], [place] [address]Ngl: (HP) [facility] 06/22/2022 KOSTA MShasha SUÁREZB: [id number] [place], [place] [address]Hcv: ~[phone]) Primary Insurance:MMOPolic y Number: [id number] taco Date:2299-25-19Syo n Name:MANAGED CARE KOSTA KenneyShasha VINCENT: [id number] [place], [place] [address]Hjg: (HP) [facility]
[2023-06-20 14:08] LABS: DHEA Sulfate 20.8 ug/dL (29.4-220.5); T3 Reverse 22.7 ng/dL (9.2-24.1); Testosterone, % Free 2.14 % (0.50-2.80); Testosterone, Free 0.24 ng/dL (0.10-0.85); Testosterone, Total 11 ng/dL (4-50); Thyroglobulin Antibody < 1.0 IU/mL (0.0-0.9); Thyroid Peroxidase AB < 9 IU/mL (0-34)
== END 2023-06-15 23:59 | disposition home or self-care (01) ==
PROVIDERS: PCP Family Medicine
DX: N95.1 Menopausal and female climacteric states (principal); D50.9 Iron deficiency anemia, unspecified; E55.9 Vitamin D deficiency, unspecified; E66.3 Overweight; R53.81 Other malaise; R53.83 Other fatigue; E03.9 Hypothyroidism, unspecified
CPT/HCPCS: 36415; 80053; 82306; 82607; 82627; 82670; 82728; 82746; 83001; 83002; 83036; 83525; 83540; 83550; 83735; 84144; 84402; 84403; 84439; 84443; 84481; 84482; 85025; 86376; 86800; 82626

== ENCOUNTER → 2023-09-06 | Outpatient (CLI) | payer OTHER, SELFPAY ==
--- NOTE | 2023-09-06 10:30 | NM_ITS ---
CLINICAL: 57-year-old female with history of abdominal pain. SEMI-SOLID PHASE 99m Tc SULFUR COLLOID GASTRIC EMPTYING STUDY COMPARISON: None available FINDINGS: The patient was administered 1.0 mCi of 99m Tc sulfur colloid mixed with oatmeal and consumed per os. Image acquisitions in the anterior-posterior projections were obtained for 60 minutes. There is prompt visualization of the stomach. There is no gastroesophageal reflux identified. The T ? raw data emptying was calculated to be 33.71 minutes, (Normal: 12-56 minutes). NM/Gastric Emptying Study IMPRESSION: 1. NORMAL 99m Tc sulfur colloid semi-solid phase (oatmeal) gastric emptying imaging examination. A. There is normal and preserved semi-solid phase gastric emptying compared to normal controls. (Alicia et al, J Nucl Med Tech 38: 186, 2010). Electronically Signed: Umesh Alejandro DO at 9:19 EST ,
== END | disposition home or self-care (01) ==
LOC: NM 10:26
PROVIDERS: PCP Family Medicine; Referring Provider Internal Medicine Gastroenterology; Visit Provider Internal Medicine Gastroenterology
DX: R10.9 Unspecified abdominal pain (principal); R19.8 Other specified symptoms and signs involving the digestive system and abdomen
CPT/HCPCS: 78264; A9541

== ENCOUNTER → 2023-09-09 | Outpatient (CLI) | payer OTHER, SELFPAY ==
--- NOTE | 2023-09-09 09:55 | NM_ITS ---
CLINICAL: 57-year-old female with history of abdominal pain. RADIONUCLIDE HEPATOBILIARY SCINTIGRAPHY COMPARISON: None available FINDINGS: Following the intravenous administration of 5.7 mCi of 99m Tc Mebrofenin, hepatobiliary images reveal: 1. Relatively prompt and homogeneous radiopharmaceutical concentration is noted by a normal sized liver. No parenchymal defects are identified. 2. Gallbladder activity is identified at 15 minutes post radiopharmaceutical administration. 3. Small intestinal tract is observed at 30 minutes following tracer injection. 4. Washout of the radiopharmaceutical by the hepatic parenchyma appears qualitatively normal. Cholecystokinin (0.02 ug/kg) was administered intravenously over a 30-minute period. The post CCK gallbladder ejection fraction calculated at 20 minutes following Cholecystokinin administration was noted to be 89.0 % (normal greater than 35%). During 30 minutes of post CCK imaging, there is no scintigraphic evidence of reflux of the radiotracer into the common hepatic duct or refilling of the gallbladder. NM/Hepatobilliary Img w/Pharm Int IMPRESSION: 1. NORMAL 99m Tc Mebrofenin hepatobiliary imaging examination with Cholecystokinin. A. A gallbladder ejection fraction calculated to be greater than 35% following the administration of Cholecystokinin makes the probability of functional hepatobiliary disease (gallbladder and/or sphincter of Oddi dyskinesia) and/or organic hepatobiliary disease (chronic acalculous cholecystitis and/or cystic duct syndrome) to be low. (Cresencio Gee et al, Journal of Nuclear Medicine 32:1695, 1991). Electronically Signed: Umesh Alejandro DO at 10:37 EST ,
--- OUTSIDE RECORDS SUMMARY | 2023-09-09 10:30 | XMS RPT_ITS | CCD ---
Author Name Unknown Address [address] [place] [address] Organization [facility] Care Team Providers Care Automobile Sales Consultant Name Role Phone [facility], Other Unavailable Lenny Lees MDril S Unavailable Mac Lees MD S Unavailable Kelsey Henderson DO A Primary Care Provider [facility], Other Unavailable Lenny Lees MDril S Unavailable Kelsey Henderson DO A Primary Care Provider CARISSA SLAUGHTER Attending Unavailable CHAUNCEY, MAC S Referring Unavailable SANTIAGO, KELSEY A Primary Care Unavailable SANTIAGO, KELSEY A Primary Care Unavailable GANAPATHI, CARISSA Kenney Attending Unavailable SANTIAGO, KELSEY A Referring Unavailable SANTIAGO, KELSEY A Primary Care Unavailable GANAPATHI, CARISSA Kenney Referring Unavailable GANAPATHI, CARISSA Kenney Attending Unavailable GANAPATHI, CARISSA Kenney Attending Unavailable CHAUNCEY, MAC S Referring Unavailable SANTIAGO, KELSEY A Primary Care Unavailable SANTIAGO, KELSEY A Primary Care Unavailable GANAPATHI, CARISSA Kenney Attending Unavailable GANAPATHI, CARISSA Kenney Admitting Unavailable SANTIAGO, KELSEY A Primary Care Unavailable Santiago , Kelsey A Primary Care Provider KELSEY HENDERSON A Primary Care Unavailable UMESH BOOTH Referring Unavailable SANTIAGO, KELSEY A Referring Unavailable SANTIAGO, KELSEY A Primary Care Unavailable UMESH BOOTH Attending Unavailable Allergies Allergy Classification Reported Allergen(s) Allergy Type Date of Onset Reaction(s) Facility (4 sources) Esomeprazole; Translations: [ESOMEPRAZOLE] Drug Allergy 04-14-20 [facility] Work Phone: (7 sources) gabapentin; Translations: [GABAPENTIN] Drug Allergy 04-14-20 Itching [facility] (7 sources) Morphine; Translations: [MORPHINE] Drug Allergy 02-14-20 07 GI Upset [facility] (7 sources) Penicillins; Translations: [PENICILLINS] Propensity to adverse reactions to drug 02-14-20 07 Hives [facility] (7 sources) Sulfamethoxazole; Translations: [SULFAMETHOXAZOLE] Drug Allergy 04-14-20 Itching [facility] (7 sources) Trimethoprim; Translations: [TRIMETHOPRIM] Drug Allergy 04-14-20 Itching [facility] (4 sources) atorvastatin; Translations: [ATORVASTATIN] Drug Allergy 05-25-20 Myalgia [facility] (4 sources) Erythromycin; Translations: [ERYTHROMYCIN] Drug Allergy 12-07-19 23 [facility] (3 sources) Esomeprazole Drug Allergy 04-14-20 Other: See Comments [facility] (4 sources) Sulfamethoxazole / Trimethoprim; Translations: [SULFAMETHOXAZOLE-T RIMETHOPRIM] Drug Allergy 02-14-20 07 [facility] (4 sources) Tetracycline; Translations: [TETRACYCLINE] Drug Allergy 12-07-19 23 Itching, [facility] (3 sources) erythromcin [Other] Propensity to adverse reactions 02-14-20 07 [facility] (1 source) OTHER; Translations: [OTHER] Propensity to adverse reactions (disorder) 02-14-20 07 [facility] Other [facility] Medications Current Medications Medication Drug Class(es) Dates Sig (Normalized) Sig (Original) atorvastatin 40 mg oral tablet (2 sources) HMG-CoA Reductase Inhibitor Start: 05-16-2022 take 1 tablet by mouth at bedtime atorvastatin 40 MG tablet Take 1 tablet by mouth at bedtime. 30 tablet 1 05/16/2022 Active fluorometholone 1 mg/ml ophthalmic suspension (6 sources) Corticosteroid Start: 04-20-2022 take 1 drop(s) into the eye(s) four times daily fluorometholone 0.1 % Suspension ophthalmic suspension 1 drop 4 times daily. 0 04/20/2022 Active Completed/Discontinued Medications Medication Drug Class(es) Dates Sig (Normalized) Sig (Original) acetaminophen 325 mg oral tablet (5 sources) Start: 05-16-2022 take 3 tablets by mouth every six hours as needed acetaminophen (TYLENOL) 325 mg tablet Take 975 mg by mouth every 6 hours as needed. 0 05/16/2022 Active Problems Problem Classification Problem Date Documented Date Episodic/Chronic Cardiac and circulatory congenital anomalies (8 sources) Anomalous origin of right coronary artery; Translations: [Malformation of coronary vessels] Onset: 04-20-2022 Chronic Conditions associated with dizziness or vertigo (3 sources) Dizziness; Translations: [Dizziness and giddiness] Onset: 04-20-2022 Episodic Esophageal disorders (6 sources) Gastroesophageal reflux disease without esophagitis; Translations: [Gastro-esophageal reflux disease without esophagitis] Onset: 12-02-2008 Chronic Malaise and fatigue (3 sources) Fatigue; Translations: [Other fatigue] Onset: 04-20-2022 Episodic Nonspecific chest pain (3 sources) Chest pain; Translations: [Chest pain, unspecified] Onset: 04-20-2022 Episodic Other lower respiratory disease (1 source) Dyspnea; Translations: [Shortness of breath] Episodic Other lower respiratory disease (2 sources) Shortness of breath; Translations: [Shortness of breath] Onset: 04-20-2022 Episodic Other nervous system disorders (1 source) Perineurial cyst; 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] Chronic Other screening for suspected conditions (not mental disorders or infectious disease) (3 sources) Blood chemistry abnormal; Translations: [Abnormal finding of blood chemistry, unspecified] Onset: 04-20-2022 Episodic Residual codes; unclassified (2 sources) H/O cardiac surgery; Translations: [Other specified postprocedural states] Episodic Residual codes; unclassified (2 sources) Other specified postprocedural states; Translations: [Other specified postprocedural states] Onset: 06-22-2022 Episodic Screening and history of mental health and substance abuse codes (3 sources) Ex-smoker; Translations: [Personal history of nicotine dependence] Onset: 04-20-2022 Episodic Spondylosis; intervertebral disc disorders; other back problems (3 sources) Inflammation of sacroiliac joint; Translations: [Sacroiliitis, not elsewhere classified] Onset: 12-06-2022 Chronic Unclassified (1 source) Tarlov cysts; 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] Onset: 12-06-2022 Results Test Name Value Interpretation Reference Range Facil ity Vital Signs Date Time Vital Sign Value Performing Clinician Stuart mata 12-06-2022 13:19-0400 Body height 170.2 cm Umesh Booth PA-C Work Phone: [facility] 12-06-2022 13:19-0400 Body weight 88 kg Umesh Lopezon PA-C Work Phone: [facility] 12-06-2022 13:19-0400 Diastolic blood pressure 78 mm[Hg] Umesh Lincolnterson PA-C Work Phone: [facility] 12-06-2022 13:19-0400 Heart rate 84 /min Umesh Lopezon PA-C Work Phone: [facility] 12-06-2022 13:19-0400 SaO2% (BldA) [Mass fraction] 97 % Umesh Booth PA-C Work Phone: [facility] 12-06-2022 13:19-0400 Systolic blood pressure 109 mm[Hg] Umesh Lincolnterson PA-C Work Phone: [facility] 06-22-2022 13:25-0400 Body height 170.2 cm Carissa Slaughter MD Work Phone: [facility] 06-22-2022 13:25-0400 Body mass index (BMI) [Ratio] 28.51 kg/m2 Carissa Slaughter MD Work Phone: [facility] 06-22-2022 13:25-0400 Body temperature 98.4 [degF] Carissa Slaughter MD Work Phone: [facility] 06-22-2022 13:25-0400 Body weight 82.56 kg Carissa Slaughter MD Work Phone: [facility] 06-22-2022 13:25-0400 Diastolic blood pressure 68 mm[Hg] Carissa Slaughter MD Work Phone: 9(094)215-492480 [place] [address] 06-22-2022 13:25-0400 Heart rate 65 /min Carissa Slaughter MD Work Phone: 3(093)487-796180 [place] [address] 06-22-2022 13:25-0400 Respiratory rate 16 /min Carissa Slaughter MD Work Phone: 8(599)599-368980 [place] [address] 06-22-2022 13:25-0400 SaO2% (BldA) [Mass fraction] 97 % Carissa Slaughter MD Work Phone: 4(149)756-691580 [place] [address] 06-22-2022 13:25-0400 Systolic blood pressure 131 mm[Hg] Carissa Slaughter MD Work Phone: 3(348)869-670080 [place] [address] 04-20-2022 12:45-0400 Body height 170.2 cm Carissa Slaughter MD Work Phone: 9(284)497-247180 [place] [address] 04-20-2022 12:45-0400 Body mass index (BMI) [Ratio] 29.44 kg/m2 Carissa Slaughter MD Work Phone: 6(134)407-701180 [place] [address] 04-20-2022 12:45-0400 Body temperature 98.2 [degF] Carissa Slaughter MD Work Phone: 5(251)293-919680 [place] [address] 04-20-2022 12:45-0400 Body weight 85.28 kg Carissa Slaughter MD Work Phone: 0(279)021-035980 [place] [address] 04-20-2022 12:45-0400 Diastolic blood pressure 69 mm[Hg] Carissa Slaughter MD Work Phone: 3(370)532-116180 [place] [address] 04-20-2022 12:45-0400 Heart rate 64 /min Carissa Slaughter MD Work Phone: 4(987)113-486980 [place] [address] 04-20-2022 12:45-0400 Respiratory rate 18 /min Carissa Slaughter MD Work Phone: [facility] 04-20-2022 12:45-0400 SaO2% (BldA) [Mass fraction] 98 % Carissa Slaughter MD Work Phone: [facility] 04-20-2022 12:45-0400 Systolic blood pressure 123 mm[Hg] Carissa Slaughter MD Work Phone: [facility] Encounters Encounter Date Encounter Type Care Provider Facility Start: 01-04-2023 Telephone encounter Luis Enrique Sanchez MD Work Phone: [facility] [place] Procedures Date Procedure Procedure Detail Performing Clinician Start: 06-22-2022 Follow-up visit Follow-up CARISSA SLAUGHTER Start: 06-22-2022 Radiologic exam ches t 2 views Darcy Tavera LEAD INSTRUCTOR/FLIGHT ATTENDANT-TRANSIT PROOF MACHINE OPERATOR Work Phone: Start: 05-16-2022 Antibody screen CARISSA LOMAX Plan of Treatment Date Care Activity Detail Author Start: 04-20-2027 Fasting lipid profile LIPID SCREENIN G [facility] Start: 04-20-2027 Lipid panel LIPID SCREENING [facility] Start: 05-16-2023 Potassium [Moles/vol ume] in Serum or Plasma POTASSIUM [facility] Start: 05-13-2023 Influenza vaccination INFLUENZ A (Season Ended) [facility] Start: 09-12-2022 DEPRESSION ASSESSMENT DEPRESSION ASS ESSMENT [facility] Start: 05-13-2022 Influenza vaccination O [facility] Start: 04-20-2022 End: 04-20-2023 Measurement of respiratory function PFT STANDARD PFT Routine Anomalous right coronary artery Chest pain, unspecified type Fatigue, unspecified type SOB (shortness of breath) Former smoker Expected: 04/20/2022, Expires: 04/20/2023 [facility] Payers Date Payer Category Payer Unknown [id number] 2021 Unknown [id number] 1965 Unknown [id number] 2.16. [id number] 1965 Unknown [id number] 2.16. [id number] 1965 Unknown [id number] 2.16. [id number] 1965 Unknown [id number] 2.16. [id number] 1965 Unknown [id number] 2.16. [id number] 1965 Unknown [id number] 2.16. [id number] Social History Date Type Detail Facility Start: 04-20-2022 End: 12-06-2022 Tobacco smoking status NHIS Ex-smoker [facility] End: 02-13-2006 History of tobacco use Current smoker [facility] Start: 04-20-2022 End: 12-06-2022 Cigarettes smoked current (pack per day) - Reported 1 [facility] Start: 04-20-2022 End: 12-06-2022 Tobacco use and exposure Smokeless tobacco non-user [facility] Start: 1965 Sex Assigned At Not on file O [facility] End: 02-13-2006 History of tobacco use Cigarette Smoker [facility] Start: 12-06-2022 Alcohol intake Current drinke r of alcohol (finding) [facility] Start: 1965 Sex Assigned At Female C [facility] Clinical Notes 04-20-2022 to 01-04-2023 Telephone Encounter - Marie Nava - 01/04/2023 9:50 AM EDTTelephone Encounter - Wendy Caballero - 01/04/2023 9:04 AM Annmarie Booth PA-C - 12/06/2022 2:13 PM EDTPatient Instructions Note Date & Type Note Facility 01-04-2023 Miscellaneous Notes Called patient to schedule no answer left vm Marie Nava Received a referral from Umesh Booth PA-C for patient to be seen for Sacroiliitis Please call and get patient scheduled Wendy Caballero Multi-Site Director Of Hospitality [facility] [place] [id number] [facility] [address] [place] [address] P: [phone] F: [phone] documented in this encounter [facility] 12-06-2022 Note HNO ID: [id number] Author: Umesh Booth PA-C Service: ? Author Type: Physician Sagger Preparer Type: Progress Notes Filed: 12/06/2022 2:22 PM Note Text: NEUROSURGERY CONSULT NOTE Umesh Booth PA-C Date of visit: December 06, 2022 Patient Name: Ms.Eva Pablito Singh Date of : 1965 Current Age: [age] year old Sex: female MRN/E# [id number] Chief Complaint: Patient presents with: New Patient [...] Pain Level: 6 Pain Location: Back-Lower Description: Sharp;Sore;Spasm;Stabbing;Tight ness Duration Amount of Time: 10 Duration Units: [...] Iothalamate Meglumine (CONRAY) 60 % soln Mix (more content not included)... [facility] 12-06-2022 History of Presen t illness Narrative Images from the original note were not included. NEUROSURGERY CONSULT NOTE Umesh Booth PA-C Date of visit: December 06, 2022 Patient Name: Ms.Eva Pablito Singh Date of : 1965 Current Age: [age] year old Sex: female MRN/E# [id number] Chief Complaint: Patient presents with: New Patient [...] Pain Level: 6 Pain Location: Back-Lower Description: Sharp;Sore;Spasm;Stabbing;Tight ness Duration Amount of Time: 10 Duration Units: Minutes Frequency: Intermittent Intervention/Comfort measure: Relaxation PAST MEDICAL HISTORY Diagnosis Date Cystitis, interstitial GERD (gastroesophageal reflux disease) PAST SURGICAL HISTORY Procedure Laterality Date DELIVERY ONLY 09/12/1993 , low cervical CONIZATION CERVIX W/WO D&C RPR ELTRD EXC 90's LAPS ABD PRTM&OMENTUM DX W/WO SPEC BR/WA SPX 80's Laparoscopy-pelvic [...] (88.0kg) SpO2 97% LMP 10/05/2010 BMI 30.38 kg/(m^2). Physical Exam Neurological Exam Mental State : [...] any concerns or questions. Umesh Booth PA-C documented in this encounter [facility] 06-22-2022 History of Presen t illness Narrative Aleyda Singh is a 56 y.o. female who presents for follow up evaluation. She underwent s/p Translocation of Right Coronary Artery by Carissa Slaughter MD and Dr. Giovani Swanson on surgery date 05/13/2022. Postoperatively, she progressed well. She discharged home on 05/16/22. The patient denies complaints of SOB, palpitations, or chest pain. The patient is sleeping well, and her appetite is good. She had bad extremity pain post op, stopped statin and saw some improvement. She also has noticed pain in her shoulders, she got a Cardiac rehab plans on starting locally Upper extremity parasthesia? Yes Description: top of forearm is numb and serna if she straightens out her arm Review of Systems - General ROS: negative for - chills, fatigue, fever, night sweats or sleep disturbance. All other systems reported negative for HEENT, Cardiac, pulmonary, GI, , musculoskeletal, and integumentary. On examination the patient's vital signs are as follows: BP 131/68 (BP Location: Right arm, BP Position: Sitting) Pulse 65 Temp 98.4 F (36.9 C) (Oral) Resp 16 Ht 1.702 m (5' 7 ) Wt 82.6 kg (182 lb) SpO2 97% BMI 28.51 kg/m Smoking Status Former . General appearance: Alert and oriented x 3, cooperative, and in no acute distress. Lungs: Excursion symmetrical and without distress. Bilateral lung sounds are clear to auscultation. Chest wall: Well-healed sternal incision, no erythema or drainage Heart: regular rate and rhythm, no murmurs appreciated Extremities: pink, warm, dry without edema. EK06/22/2022 NSR 63 bpm CXR:06/22/2022 Stable on review NYHA: I CCS: No angina Assessment/Plan: The patient was evaluated by the cardiothoracic nurse practitioner and medications were reviewed. -Medications: No changes today -Cardiac Rehab: The patient was encouraged to participate in cardiac rehabilitation. Rehab will take place at [facility] in [place], [place]. -Regarding work, she can return to work 06/28. -Sternal precautions will be lifted as of the 6-week post-operative time kelsey. At that time she can slowly return to normal activity, with no lifting >20 lbs until 12 weeks post-op. The patient was discharged from cardiothoracic surgery. The patient will follow up with PCP Dr. Henderson and [facility] Dr. Lees after today's visit. If there are ever any concerns regarding the patients surgery or surgical incisions, please contact our office at [phone]. Sincerely, SONJA Hampton Cardiac [facility] documented in this encounter [facility] 06-22-2022 Instructions Eloise Alicea RN - 06/22/2022 1:30 PM EDT Thank you for choosing [facility] Division of Cardiac Surgery for your cardiac surgical needs. At this time, you are being discharged from the care of Dr. Carissa Slaughter MD. You should continue to follow-up with your [facility] and your Primary Care physician for further medication refills and health care questions. Please call our office if you have any concerns or questions in relation to your incision site at [phone]. In regards to your medications that were reviewed at your visit today, please make the following changes: none As you continue the healing process, please adhere to the following: We encourage you to participate in cardiac rehab at this time. If you have not received a call from your local cardiac rehab facility, please give them a call to set this up. Your restrictions are being lifted as of the 6 week post-op kelsey and you may begin to drive at the 6 week post-op kelsey as long as you are no longer taking prescription pain medications. Please make sure you have someone with you in the car the first time you drive following surgery. Remember: The healing process takes time, as your increase your activity, go slow and if it hurts then stop and reevaluate the activity you are doing. documented in this encounter [facility] 04-20-2022 Instructions Tiffanie Bernal RN - 04/20/2022 1:45 PM EDT Thank you for choosing [facility] Division of Cardiac Surgery for your cardiac surgical needs. After your discussion today with Dr. Slaughter, the plan is to proceed with surgical intervention. 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 Your Surgery date is: TBD Your arrival [facility] to the [facility] first floor Registration is: TBD . Prior to your surgery, we will need you to complete the following: Laboratory Testing -- You will need lab work today to check your blood type and make sure your labs are stable prior to surgery. You will go to the laboratory today prior to leaving our office. You will need to contact your [facility] Dr. Lees to schedule the following pre op tests: Echocardiogram -- Your appointment is on TBD. Your arrival time for your study is TBD, at the following facility: TBD. Other Testing -- Pulmonary Function Testing (PFTs) -- Your appointment is on TBD at the following facility: TBD. Your arrival time for your study is TBD. Other Testing -- Carotid Ultrasound -- Your appointment is on TBD at the following facility: TBD. Your arrival time for your study is TBD. INSTRUCTIONS FOR SURGERY: You should have NOTHING TO EAT OR DRINK AFTER MIDNIGHT THE DAY OF SURGERY. This is VERY important and will cause your surgery to be cancelled if you eat after midnight. You may take your morning medications with a SIP of water. You may brush your teeth using a MINIMAL amount of water, try not to swallow any water. Do not bring hearing aids, jewelry, watches, rings, hairpieces, makeup, glasses or contact lenses, or dentures with you on the morning of surgery. You may give these to a loved one to bring to you AFTER your surgery. Do not shave, pluck hair or wax anywhere near the sites for surgery within 2 days of your operation. Prior to your surgery, you should review all the information in the Getting Ready for Heart Surgery booklet you received today. If you are attending OPAC, you will receive your cleanse soap and your envelope with your blood band for the day of surgery at that appointment. For Female Patients -- If you are still menstruating and will be on your cycle at the time of your surgery, as we cannot operate on you if are on your cycle. Female Patients - Before your planned surgery you will need to obtain a front hooking sports bra with no wire. This will need to be worn post surgery to ensure you have good support to avoid tension on you new incision. If you are exposed to COVID-19 or develop symptoms of COVID-19 prior to your scheduled surgery, or any other type of infection, please contact our offices immediately at [phone]. You may need to have your surgery moved, as we would not want to put you at risk for complications due to an illness. PRE-OPERATIVE MEDICATION INSTRUCTIONS: You may continue to take the following medications, as scheduled up to and including the morning of surgery unless otherwise noted below: Lansoprazole Eye drops You may take Acetaminophen(Tylenol) if needed the week prior to surgery. Certain Medications MUST be stopped prior to your procedure. You should STOP Herbal Medication (including fish oil ([place]-3), garlic, gingko, ginseng, Vitamin E) 2 weeks before surgery. You should STOP ibuprofen, Advil, Motrin, naproxen, or Aleve for the 7 days before surgery. If you are taking medications for immunosuppression, please notify our team immediately so we may provide you with instructions on how to take these. If you are placed on Antibiotics within 1 week of surgery, please notify our team immediately. PRE-OPERATIVE BATHING INSTRUCTIONS: You are receiving special CHG cleanser (Hibiclens) soap today. You will need to use this on the 4 days prior to your surgery, and then finally on THE DAY OF SURGERY. Take a shower as you normally would, then as a final step, use the special soap to completely cleanse your body from the chin down to your toes. Rinse well. You should bathe DAILY with this soap for the 4 days prior to your surgery, and then your final bath MUST BE THE MORNING OF SURGERY. This may be at 3 or 4 in the morning if your arrival time is 5am. The soap is created to help rid the skin of bacteria that might contribute to an infection in your surgical wound. - If you have Sleep Apnea and have a CPAP or BIPAP, then bring your mask and machine with you to the hospital. documented in this encounter [facility] 04-20-2022 History of Presen t illness Narrative Images from the original note were not included. Cardiothoracic Surgery H&P CC Anomalous RCA HPI Ms. Singh is a 56 y.o. female with a past medical history of cystitis and GERD. Quit smoking [address] Lees is her [facility] in [place] who referred her for an anomalous RCA with exertional angina that she has had intermittently for several months. She presents with symptoms of dull chest discomfort that occurs with exertion and with rest. States it is mostly with exertion though, finds it is more when she is stressed out. It started last year at the beginning of summer, 2020. She initially was getting worked up for back pain. She did have an ECG that was abnormal in her PCP office then. Her father had a CABG at age 50 and a redo 12 years later. They deny fever/chills, lightheadedness/syncope, palpitations, or edema. 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 CCS Classification: [x]Class I - Angina only during strenuous or prolonged physical activity [ ]Class II - Slight limitation, with angina only during vigorous physical activity [ ]Class III - Symptoms with everyday living activities, i.e., moderate limitation [ ]Class IV - Inability to perform any activity without angina or angina at rest, i.e., severe limitation NYHA Classification: [x] Class I - Cardiac disease, but no symptoms and no limitation in ordinary physical activity, e.g. no shortness of breath when walking, climbing stairs etc. [ ] Class II - Mild symptoms (mild shortness of breath and/or angina) and slight limitation during ordinary activity. [ ] Class III - Marked limitation in activity due to symptoms, even during xccf-tqam-[id number] activity, e.g. walking short distances (20-100 m). Comfortable only at rest. [ ] Class IV - Severe limitations. Experiences symptoms even while at rest. Mostly bedbound patients. Past Medical History Past Medical History: Diagnosis Date Anomalous right coronary artery DDD (degenerative disc disease), cervical GERD (gastroesophageal reflux disease) Obesity Plantar fasciitis Pulmonary nodule Rotator cuff syndrome Past Surgical History: Procedure Laterality Date TUBAL LIGATION Family History No family history on file. Social History reports that she quit smoking about 16 years ago. She has a 20.00 pack-year smoking history. She has never used smokeless tobacco. No history on file for alcohol use and drug use. Social History Tobacco Use Smoking Status Former Smoker Packs/day: 1.00 Years: 20.00 Pack years: 20.00 Quit date: 2005 Years since quittin.6 Smokeless Tobacco Never Used Social History Substance and Sexual Activity Alcohol Use Not on file Allergies Allergies Allergen Reactions Esomeprazole Gabapentin Morphine Penicillins Sulfamethoxazole Trimethoprim Current Medication Current Outpatient Medications Medication Sig Dispense Refill lansoprazole [address] capsule Take 1 capsule by mouth daily. No current facility-administered medications for this visit. Physical Exam Vitals: 04/20/22 1245 BP: 123/69 Pulse: 64 Resp: 18 Temp: 98.2 degrees F (36.8 degrees C) TempSrc: Oral SpO2: 98% Weight: 85.3 kg (188 lb) Height: 1.702 m (5' 7 ) General appearance: alert, cooperative, appears stated age Lungs: clear bilaterally Heart: regular rate and rhythm, no murmur noted Abdomen: soft, rounded Extremities: no lower extremity edema. Pulses: radial 2+ and symmetric Skin: Warm and dry. Musculoskeletal: gait is coordinated and symmetrical Neurologic: no gross focal deficits noted. Psych: appropriate mood and affect for clinical situation Diagnostic Results/Procedures- Reviewed with Dr. 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 This is in the setting of history of cystitis and GERD. RECOMMENDATIONS: Patient evaluated with Dr. Slaughter and given the above data, Aleyda Singh would benefit from translocation of the anomalous artery v. Bypass. In preparation for the operation we will obtain: Echocardiogram PFTs Carotid duplex Holding pre op Cardiac Surgery meds per Dr. Slaughter. SONJA May [facility] Nurse Practitioner P: [phone] F: [phone] CARDIAC SURGERY - STAFF Primary Care Physician: Kelsey Henderson DO Referring Presser All Around: Mac Lees MD Today I had the pleasure of seeing Aleyda Singh is a 56 y.o. female with Darcy CASILLAS The patient was referred to me for anomalous RCA. I have reviewed the patient's history, medications, and current complaints. Please see note for details regarding these. Briefly this is a 56 yo F who presented with intermittent angina. 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 I have personally reviewed the imaging in regards to this issue and results are as follows: Echocardiogram: Pending Cardiac Catheterization: No significant CAD, anomalous RCA off left cusp CT: No significant calcification in aorta, anomalous RCA off left cusp At this time, I feel we should proceed with translocation of the anomalous artery v. Bypass with Dr. Swanson of congenital surgery. I have personally seen and discussed the findings, indications, and the procedure with the patient. PLAN: Obtain the following: -Echo -PFTs -Carotids Carissa Slaughter MD Attending Surgeon Division of Cardiac Surgery Patient Education Patient education regarding the following topic(s) was provided on 04/20/2022: cardiac surgery. Those in attendance for the education included: patient. Barriers in providing the education included: none. The following methods were used in providing the education: explanation. [facility] handouts given included: Cardiothoracic book. The response of those in attendance was: states/identifies education topic. The following Clinical Intervention(s) occurred during today s visit: Extensive teaching provided to patient and or support team regarding cardiac surgery SN explained to the patient the steps and rational to obtain the Methicillin-Resistant Staphylococcus aureus (MRSA) culture. The test is used in the differential diagnosis for preoperative patients. MRSA is a strain of Staphylococcus aureus that is resistant to methicillin, the antibiotic most commonly used to treat staphylococcal infections. The complication rate is high in patients with incisions infected with MRSA after Cardiaothoracic surgery. Procedure: 1. SN will wash her hands and done clean gloves. 2. Obtain a sterile cotton-tipped Culturette swab with sodium chloride medium. 3. Culture each nostril, using a rotating motion for 10 seconds and using one swab per nostril. 4. Place the swabs in the sodium chloride medium. Patient instructed that the results are normally available within a few days. If your culture is positive, we will contact you and send in a prescription for Mupirocin 2% ointment to your pharmacy. A positive MRSA colonization inside your nose is found everywhere in society. You do not have an active infection, but having the test positive means you are at higher risk of developing this infection. You are not contagious at present to yourself or others around you. In order to treat this you will have to rub the Mupirocin 2% ointment into each of your nostrils twice a day for 5 days prior to your surgery. documented in this encounter [facility] Status post [facility] Diagnosis Status post [facility]- [facility] Diagnosis Sacroiliitis (HCC)- Primary Sacroiliitis, not elsewhere classified Tarlov cysts Mononeuritis of unspecified site [facility] Diagnosis Sacroiliitis (HCC) Sacroiliitis, not elsewhere classified documented in this encounter [facility] for referral (narrative)* Diagnostic Procedure Only (Routine) - Closed Specialty Diagnoses / Procedures Referred By Contac t Referred To Contact XR IMAGING Diagnoses Sacroiliitis (HCC) Procedures XR LUMBAR MOTION 4V AP/LAT/ FLEX/EXT RADEX SPINE LUMBOSACRAL MINIMUM 4 VIEWS Umesh Booth PA-C [address] [place] [address] Xr Imaging Referral ID Status Reason Start Date Expiration Date V isits Requested Visits Authorized [id number] Closed Auto-Generate d Referral 12/06/2022 01/05/2024 1 1 * Physical Therapy (Routine) - Pending Review Specialty Diagnoses / Procedures Referred By Contac t Referred To Contact [facility] Diagnoses Sacroiliitis (HCC) Procedures CONSULT TO PHYSICAL THERAPY PHYSICAL THERAPY EVALUATION HIGH COMPLEX 45 MINS Umesh Booth PA-C [address] [place] [address] [facility] [place] [address] [place] [address] Referral ID Status Reason Start Date Expiration Date Visits Requested Visits Authorized [id number] Pending Review Auto-Generat ed Referral 12/06/2022 12/06/2023 1 1 [facility] for referral (narrative)* Diagnostic Procedure Only (Routine) - Closed Specialty Diagnoses / Procedures Referred By Contac t Referred To Contact XR IMAGING Diagnoses Sacroiliitis (HCC) Procedures XR LUMBAR MOTION 4V AP/LAT/ FLEX/EXT RADEX SPINE LUMBOSACRAL MINIMUM 4 VIEWS Umesh Booth PA-C [address] [place] [address] Xr Imaging Referral ID Status Reason Start Date Expiration Date V isits Requested Visits Authorized [id number] Closed Auto-Generate d Referral 12/06/2022 01/05/2024 1 1 [facility] Diagnostic Procedure Only (Routine) - Closed Specialty Diagnoses / Procedures Referred By Contac t Referred To Contact XR IMAGING Diagnoses Sacroiliitis (HCC) Procedures XR LUMBAR MOTION 4V AP/LAT/ FLEX/EXT RADEX SPINE LUMBOSACRAL MINIMUM 4 VIEWS Umesh Booth PA-C [address] [place] [address] Xr Imaging Referral ID Status Reason Start Date Expiration Date V isits Requested Visits Authorized [id number] Closed Auto-Generate d Referral 12/06/2022 01/05/2024 1 1 [facility] Summary Purpose Family History No Family History Records FoundNo Family History Records FoundNo Family History Records Found Advance Directives No Advanced Directives Records FoundLatest Code Status on File Code Status Date Activated Date Inactivated Comments Full Code 05/13/2022 1:09 PM Reason for Referral Specialty Diagnoses / Procedures Referred By Contac t Referred To Contact Diagnoses Anomalous right coronary artery Chest pain, unspecified type Fatigue, unspecified type SOB (shortness of breath) Dizziness Procedures VASC DUPLEX CAROTID BILATERAL Darcy Tavera LEAD INSTRUCTOR/FLIGHT ATTENDANT-TRANSIT PROOF MACHINE OPERATOR [address] [place] [address] Referral ID Status Reason Start Date Expiration Date V isits Requested Visits Authorized [id number] New Request 04/20/2022 05/15/2023 1 1 Specialty Diagnoses / Procedures Referred By Contac t Referred To Contact Diagnoses Anomalous right coronary artery Chest pain, unspecified type Fatigue, unspecified type SOB (shortness of breath) Former smoker Procedures PFT STANDARD Darcy Tavera, LEAD INSTRUCTOR/FLIGHT ATTENDANT-TRANSIT PROOF MACHINE OPERATOR [address] [place] [address] Referral ID Status Reason Start Date Expiration Date V isits Requested Visits Authorized [id number] New Request 04/20/2022 05/15/2023 1 1 Specialty Diagnoses / Procedures Referred By Contac t Referred To Contact Diagnoses Anomalous right coronary artery Chest pain, unspecified type Fatigue, unspecified type SOB (shortness of breath) Procedures ECHOCARDIOGRAM HI ECHO HEART XTHORACIC,COMPLETE W DOPPLER Darcy Tavera, LEAD INSTRUCTOR/FLIGHT ATTENDANT-TRANSIT PROOF MACHINE OPERATOR [address] [place] [address] Referral ID Status Reason Start Date Expiration Date V isits Requested Visits Authorized [id number] New Request 04/20/2022 05/15/2023 1 1 Additional Source Comments INFORMATION SOURCE (unrecogn ized section and content) DATE CREATED AUTHOR AUTHOR'S ORGANIZ ATION 07/04/2022 [facility] DATE CREATED AUTHOR AUTHOR'S ORGANIZ ATION 01/05/2023 [facility] Reason for Visit (unrecogniz ed section and content) Reason Comments Follow-up Reason Comments New Patient Care Teams (unrecognized sec tion and content) Automobile Sales Consultant Relationship Specialty Start Date End Date [facility] [address] [place] [address] PCP - Security System Installer Transplant 01/26/19 Kelsey Henderson DO [address] [place] [address] PCP - General Family Medicine 04/20/22 Mac Lees MD [address] [facility] [address] Cardiovascular Disease 04/20/22 Automobile Sales Consultant Relationship Specialty Start Date End Date [facility] [address] [place] [address] PCP - Security System Installer Transplant 01/26/19 Kelsey Henderson DO [address] [place] [address] PCP - General Family Medicine 04/20/22 Mac Lees MD [address] [place] [id number] Cardiovascular Disease 04/20/22 Automobile Sales Consultant Relationship Specialty Start Date End Date Kelsey Henderson DO [address] [place], [place] [id number] PCP - General Family Medicine 12/03/16 Automobile Sales Consultant Relationship Specialty Start Date End Date Kelsey Henderson DO [address] [place] [address] PCP - General Family Medicine 12/03/16 Automobile Sales Consultant Relationship Specialty Start Date End Date Kelsey Henderson [address] [place], [place] [id number] PCP - General Family Medicine 12/03/16 Source Comments (unrecognize d section and content) In the event this informatio n is protected by the Federal Confidentiality of Alcohol and Drug Abuse Patient Records regulations: The Federal rules restrict any use of the information to criminally investigate or prosecute any alcohol or drug abuse patient.[facility] the event this information is protected by the Federal Confidentiality of Alcohol and Drug Abuse Patient Records regulations: The Federal rules restrict any use of the information to criminally investigate or prosecute any alcohol or drug abuse patient.[facility] the event this information is protected by the Federal Confidentiality of Alcohol and Drug Abuse Patient Records regulations: The Federal rules restrict any use of the information to criminally investigate or prosecute any alcohol or drug abuse patient.[facility] FOR RECORDS PERTAINING TO PATIENTS WHO ARE OR HAVE BEEN ENROLLED IN A CHEMICAL DEPENDENCY/SUBSTANCEABUSE PROGRAM, SOME INFORMATION MAY BE OMITTED. This clinical summary was aggregated from multiple sources. Caution should be exercised in using it in the provision of clinical care. This summary normalizes information from multiple sources, and as a consequence, information in this document may materially change the coding, format and clinical context of patient data. In addition, data may be omitted in some cases. CLINICAL DECISIONS SHOULD BE BASED ON THE PRIMARY CLINICAL RECORDS. [facility]. provides no warranty or guarantee of the accuracy or completeness of information in this document.
== END | disposition home or self-care (01) ==
LOC: NM 09:52
PROVIDERS: PCP Family Medicine; Referring Provider Internal Medicine Gastroenterology; Visit Provider Internal Medicine Gastroenterology
DX: R10.9 Unspecified abdominal pain (principal); R19.8 Other specified symptoms and signs involving the digestive system and abdomen
CPT/HCPCS: 78227; A9537; J2805

== ENCOUNTER → 2023-10-24 | Outpatient (CLI) | payer OTHER, SELFPAY ==
--- OUTSIDE RECORDS SUMMARY | 2023-10-24 07:50 | XMS RPT_ITS | CCD ---
Author Name Unknown Address [address] [place] [address] Organization [facility] Care Team Providers Care Glue Drier Operator Name Role Phone [facility], Other Unavailable Lenny Lees MDril S Unavailable Mac Lees MD S Unavailable Kelsey Henderson DO A Primary Care Provider [facility], Other Unavailable Lenny Lees MDril [...] sources) Esomeprazole; Translations: [ESOMEPRAZOLE] Drug Allergy 04-14-20 [facility] Work Phone: (7 sources) gabapentin; Translations: [GABAPENTIN] Drug Allergy 04-14-20 Itching [facility] (7 sources) Morphine; Translations: [MORPHINE] Drug Allergy 02-14-20 07 GI Upset [facility] (7 sources) Penicillins; Translations: [PENICILLINS] Propensity to adverse reactions to drug 02-14-20 07 Hives [facility] (7 sources) Sulfamethoxazole; Translations: [SULFAMETHOXAZOLE] Drug Allergy 04-14-20 Itching [facility] (7 sources) Trimethoprim; Translations: [TRIMETHOPRIM] Drug Allergy 04-14-20 Itching [facility] (4 sources) atorvastatin; Translations: [ATORVASTATIN] Drug Allergy 05-25-20 Myalgia [facility] (4 sources) Erythromycin; Translations: [ERYTHROMYCIN] Drug Allergy 12-07-19 23 [facility] (3 sources) Esomeprazole Drug Allergy 04-14-20 Other: See Comments [facility] (4 sources) Sulfamethoxazole / Trimethoprim; Translations: [SULFAMETHOXAZOLE-T RIMETHOPRIM] Drug Allergy 02-14-20 07 [facility] (4 sources) Tetracycline; Translations: [TETRACYCLINE] Drug Allergy 12-07-19 23 Itching, [facility] (3 sources) erythromcin [Other] Propensity to adverse reactions 02-14-20 07 [facility] (1 source) OTHER; Translations: [OTHER] Propensity to adverse reactions (disorder) 02-14-20 07 [facility] Other [place] [facility] Medications Current Medications Medication Drug Class(es) [...] 170.2 cm Umesh Booth PA-C Work Phone: [facility] 12-06-2022 13:19-0400 Body weight 88 kg Umesh Lopezon PA-C Work Phone: [facility] 12-06-2022 13:19-0400 Diastolic blood pressure 78 mm[Hg] Umesh Lincolnterson PA-C Work Phone: [facility] 12-06-2022 13:19-0400 Heart rate 84 /min Umesh Lopezon PA-C Work Phone: [facility] 12-06-2022 13:19-0400 SaO2% (BldA) [Mass fraction] 97 % Umesh Booth PA-C Work Phone: [facility] 12-06-2022 13:19-0400 Systolic blood pressure 109 mm[Hg] Umesh Lincolnterson PA-C Work Phone: [facility] 06-22-2022 13:25-0400 Body height 170.2 cm Carissa Slaughter MD Work Phone: [facility] 06-22-2022 13:25-0400 Body mass index (BMI) [Ratio] 28.51 kg/m2 Carissa Slaughter MD Work Phone: [facility] 06-22-2022 13:25-0400 Body temperature 98.4 [degF] Carissa Slaughter MD Work Phone: [facility] 06-22-2022 13:25-0400 Body weight 82.56 kg Carissa Slaughter MD Work Phone: [facility] 06-22-2022 13:25-0400 Diastolic blood pressure 68 mm[Hg] Carissa Slaughter MD Work Phone: 8(946)566-901447 [place] [address] 06-22-2022 13:25-0400 Heart rate 65 /min Carissa Slaughter MD Work Phone: 8(672)473-214347 [place] [address] 06-22-2022 13:25-0400 Respiratory rate 16 /min Carissa Slaughter MD Work Phone: 6(719)320-881147 [place] [address] 06-22-2022 13:25-0400 SaO2% (BldA) [Mass fraction] 97 % Carissa Slaughter MD Work Phone: 5(553)691-899647 [place] [address] 06-22-2022 13:25-0400 Systolic blood pressure 131 mm[Hg] Carissa Slaughter MD Work Phone: 1(800)208-180047 [place] [address] 04-20-2022 12:45-0400 Body height 170.2 cm Carissa Slaughter MD Work Phone: 1(675)668-706147 [place] [address] 04-20-2022 12:45-0400 Body mass index (BMI) [Ratio] 29.44 kg/m2 Carissa Slaughter MD Work Phone: 1(496)373-555147 [place] [address] 04-20-2022 12:45-0400 Body temperature 98.2 [degF] Carissa Slaughter MD Work Phone: 8(776)849-518447 [place] [address] 04-20-2022 12:45-0400 Body weight 85.28 kg Carissa Slaughter MD Work Phone: 9(143)871-448447 [place] [address] 04-20-2022 12:45-0400 Diastolic blood pressure 69 mm[Hg] Carissa Slaughter MD Work Phone: 0(852)604-977647 [place] [address] 04-20-2022 12:45-0400 Heart rate 64 /min Carissa Slaughter MD Work Phone: 4(976)277-665047 [place] [address] 04-20-2022 12:45-0400 Respiratory rate 18 /min Carissa Slaughter MD Work Phone: [facility] 04-20-2022 12:45-0400 SaO2% (BldA) [Mass fraction] 98 % Carissa Slaughter MD Work Phone: [facility] 04-20-2022 12:45-0400 Systolic blood pressure 123 mm[Hg] Carissa Slaughter MD Work Phone: [facility] Encounters Encounter Date Encounter Type Care Provider Facility Start: 01-04-2023 Telephone encounter Luis Enrique Sanchez MD Work Phone: [facility] [place] Procedures Date Procedure Procedure Detail Performing Clinician Start: 06-22-2022 Follow-up visit Follow-up CARISSA SLAUGHTER Start: 06-22-2022 Radiologic exam ches t 2 views Darcy Tavera NECK SKEWER-LOCKSTITCH WAISTLINE JOINER Work Phone: Start: 05-16-2022 Antibody screen CARISSA LOMAX Plan of Treatment Date Care Activity Detail Author Start: 04-20-2027 Fasting lipid profile LIPID SCREENIN G [facility] Start: 04-20-2027 Lipid panel LIPID SCREENING [facility] Start: 05-16-2023 Potassium [Moles/vol ume] in Serum or Plasma POTASSIUM [facility] Start: 05-13-2023 Influenza vaccination INFLUENZ A (Season Ended) [facility] Start: 09-12-2022 DEPRESSION ASSESSMENT DEPRESSION ASS ESSMENT [facility] Start: 05-13-2022 Influenza vaccination O [facility] Start: 04-20-2022 End: 04-20-2023 Measurement of respiratory function PFT STANDARD PFT Routine Anomalous right coronary artery Chest pain, unspecified type Fatigue, unspecified type SOB (shortness of breath) Former smoker Expected: 04/20/2022, Expires: 04/20/2023 [facility] Payers Date Payer Category Payer Unknown [id number] 2021 Unknown [id number] 1965 Unknown [id number] 2.16. [id number] 1965 Unknown [id number] 2.16. [id number] 1965 Unknown [id number] 2.16. [id number] 1965 Unknown [id number] 2.16. [id number] 1965 Unknown [id number] 2.16. [id number] 1965 Unknown [id number] 2.16. [id number] Social History Date Type Detail Facility Start: 04-20-2022 End: 12-06-2022 Tobacco smoking status NHIS Ex-smoker [facility] End: 02-13-2006 History of tobacco use Current smoker [facility] Start: 04-20-2022 End: 12-06-2022 Cigarettes smoked current (pack per day) - Reported 1 [facility] Start: 04-20-2022 End: 12-06-2022 Tobacco use and exposure Smokeless tobacco non-user [facility] Start: 1965 Sex Assigned At Not on file O [facility] End: 02-13-2006 History of tobacco use Cigarette Smoker [facility] Start: 12-06-2022 Alcohol intake Current drinke r of alcohol (finding) [facility] Start: 1965 Sex Assigned At Female C [facility] Clinical Notes 04-20-2022 to 01-04-2023 Telephone Encounter [...] and get patient scheduled Wendy Caballero Multi-Site Placement Director [facility] [place] [id number] [facility] [address] [place] [address] P: [phone] F: [phone] documented in this encounter [facility] 12-06-2022 Note HNO ID: [id number] Author: Umesh Booth PA-C Service: ? Author Type: Physician Architect Internship Type: Progress Notes Filed: 12/06/2022 2:22 PM Note Text: NEUROSURGERY CONSULT NOTE Umesh Booth PA-C Date of visit: December 06, 2022 Patient Name: Ms.Eva Pablito Singh Date of : 1965 Current Age: [age] year old Sex: female MRN/E# [id number] Chief Complaint: Patient presents with: New Patient [...] % soln Mix (more content not included)... [facility] 12-06-2022 History of Presen t illness Narrative Images from the original note were not included. NEUROSURGERY CONSULT NOTE Umesh Booth PA-C Date of visit: December 06, 2022 Patient Name: Ms.Eva Pablito Singh Date of : 1965 Current Age: [age] year old Sex: female MRN/E# [id number] Chief Complaint: Patient presents with: New Patient [...] Umesh Booth PA-C documented in this encounter [facility] 06-22-2022 History of Presen t illness Narrative [...] cardiac rehabilitation. Rehab will take [facility] [place], [place]. -Regarding work, she can return to work 06/28. -Sternal precautions will be lifted as of the 6-week post-operative time kelsey. At that time she can slowly return to normal activity, with no lifting >20 lbs until 12 weeks post-op. The patient was discharged from cardiothoracic surgery. The patient will follow up with PCP Dr. Henderson and Content Producer Dr. Lees after today's visit. If there are ever any concerns regarding the patients surgery or surgical incisions, please contact our office at [phone]. Sincerely, SONJA Hampton Cardiac Surgery [facility] documented in this encounter [facility] 06-22-2022 Instructions Eloise Alicea RN - 06/22/2022 1:30 PM EDT Thank you for choosing [facility] Division of Cardiac Surgery for your cardiac surgical needs. At this time, you are being discharged from the care of Dr. Carissa Slaughter MD. You should continue to follow-up with your Content Producer and your Primary Care physician for further medication refills and health care questions. Please call our office if you have any concerns or questions in relation to your incision site at [phone]. In regards to your medications that were [...] you are doing. documented in this encounter [facility] 04-20-2022 Instructions Tiffanie Bernal RN - 04/20/2022 1:45 PM EDT Thank you for choosing [facility] Division of Cardiac Surgery for your cardiac surgical needs. After your discussion today with Dr. Slaughter, the plan is to proceed with surgical intervention. 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 Your Surgery date is: TBD Your arrival time to the [facility] first floor Registration is: TBD . Prior to your surgery, we will need you to complete the following: Laboratory Testing -- You will need lab work today to check your blood type and make sure your labs are stable prior to surgery. You will go to the laboratory today prior to leaving our office. You will need to contact your Content Producer Dr. Lees to schedule the following pre [...] infection, please contact our offices immediately at [phone]. You may need to have your surgery [...] should STOP Herbal Medication (including fish oil ([place]-3), garlic, gingko, ginseng, Vitamin E) 2 weeks [...] to the hospital. documented in this encounter [facility] 04-20-2022 History of Presen t illness Narrative Images from the original note were not included. Cardiothoracic Surgery H&P CC Anomalous RCA HPI Ms. Singh is a 56 y.o. female with a past medical history of cystitis and GERD. Quit smoking [address] Lees is her Content Producer in [place] who referred her for an anomalous RCA [...] or edema. 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 [...] in activity due to symptoms, even during [id number] activity, e.g. walking short distances (20-100 m). [...] situation Diagnostic Results/Procedures- Reviewed with Dr. Slaughter [facility] 04/19/[address] 04/19/22 No results found [...] May [facility] Nurse Practitioner P: [phone] F: [phone] CARDIAC SURGERY - STAFF Primary Care Physician: Kelsey Henderson DO Referring Content Producer: Mac Lees MD Today I had the [...] were used in providing the education: explanation. [facility] handouts given included: Cardiothoracic book. The response [...] your surgery. documented in this encounter [facility] Diagnosis Status post cardiac surgery [facility] Diagnosis Status post cardiac surgery- Primary [facility] Diagnosis Sacroiliitis (HCC)- Primary Sacroiliitis, not elsewhere classified Tarlov cysts Mononeuritis of unspecified site [facility] Diagnosis Sacroiliitis (HCC) Sacroiliitis, not elsewhere classified documented in this encounter [facility] for referral (narrative)* Diagnostic Procedure Only (Routine) - Closed Specialty Diagnoses / Procedures Referred By Contac t Referred To Contact XR IMAGING Diagnoses Sacroiliitis (HCC) Procedures XR LUMBAR MOTION 4V AP/LAT/ FLEX/EXT RADEX SPINE LUMBOSACRAL MINIMUM 4 VIEWS Umesh Booth PA-C [address] [place] [address] Xr Imaging Referral ID Status Reason Start Date Expiration Date V isits Requested Visits Authorized [id number] Closed Auto-Generate d Referral 12/06/2022 01/05/2024 1 1 * Physical Therapy (Routine) - Pending Review Specialty Diagnoses / Procedures Referred By Contac t Referred To Contact [facility] Diagnoses Sacroiliitis (HCC) Procedures CONSULT TO PHYSICAL THERAPY PHYSICAL THERAPY EVALUATION HIGH COMPLEX 45 MINS Umesh Booth PA-C [address] [place] [address] [facility] [place] [address] [place] [address] Referral ID Status Reason Start Date Expiration Date Visits Requested Visits Authorized [id number] Pending Review Auto-Generat ed Referral 12/06/2022 12/06/2023 1 1 [facility] for referral (narrative)* Diagnostic Procedure Only (Routine) - Closed Specialty Diagnoses / Procedures Referred By Contac t Referred To Contact XR IMAGING Diagnoses Sacroiliitis (HCC) Procedures XR LUMBAR MOTION 4V AP/LAT/ FLEX/EXT RADEX SPINE LUMBOSACRAL MINIMUM 4 VIEWS Umesh Booth PA-C [address] [place] [address] Xr Imaging Referral ID Status Reason Start Date Expiration Date V isits Requested Visits Authorized [id number] Closed Auto-Generate d Referral 12/06/2022 01/05/2024 1 [facility] Diagnostic Procedure Only (Routine) - Closed Specialty Diagnoses / Procedures Referred By Contac t Referred To Contact XR IMAGING Diagnoses Sacroiliitis (HCC) Procedures XR LUMBAR MOTION 4V AP/LAT/ FLEX/EXT RADEX SPINE LUMBOSACRAL MINIMUM 4 VIEWS Umesh Booth PA-C [address] [place] [address] Xr Imaging Referral ID Status Reason Start Date Expiration Date V isits Requested Visits Authorized [id number] Closed Auto-Generate d Referral 12/06/2022 01/05/2024 1 1 [facility] Summary Purpose Family History No Family History [...] Procedures VASC DUPLEX CAROTID BILATERAL Darcy Tavera NECK SKEWER-LOCKSTITCH WAISTLINE JOINER [address] [place] [address] Referral ID Status Reason Start Date Expiration Date V isits Requested Visits Authorized [id number] New Request 04/20/2022 05/15/2023 1 1 Specialty Diagnoses / Procedures Referred By Contac t Referred To Contact Diagnoses Anomalous right coronary artery Chest pain, unspecified type Fatigue, unspecified type SOB (shortness of breath) Former smoker Procedures PFT STANDARD Darcy Tavera, NECK SKEWER-LOCKSTITCH WAISTLINE JOINER [address] [place] [address] Referral ID Status Reason Start Date Expiration Date V isits Requested Visits Authorized [id number] New Request 04/20/2022 05/15/2023 1 1 Specialty Diagnoses / Procedures Referred By Contac t Referred To Contact Diagnoses Anomalous right coronary artery Chest pain, unspecified type Fatigue, unspecified type SOB (shortness of breath) Procedures ECHOCARDIOGRAM IL ECHO HEART XTHORACIC,COMPLETE W DOPPLER Darcy Tavera, NECK SKEWER-LOCKSTITCH WAISTLINE JOINER [address] [place] [address] Referral ID Status Reason Start Date Expiration Date V isits Requested Visits Authorized [id number] New Request 04/20/2022 05/15/2023 1 1 Additional Source Comments INFORMATION SOURCE (unrecogn ized section and content) DATE CREATED AUTHOR AUTHOR'S ORGANIZ ATION 07/04/2022 [facility] DATE CREATED AUTHOR AUTHOR'S ORGANIZ ATION 01/05/2023 [facility] Reason for Visit (unrecogniz ed section and content) Reason Comments Follow-up Reason Comments New Patient Care Teams (unrecognized sec tion and content) Glue Drier Operator Relationship Specialty Start Date End Date [facility], Other [address] [place] [address] PCP - Saddle Lining Stitcher Transplant 01/26/19 Kelsey Henderson DO [address] [place] [address] PCP - General Family Medicine 04/20/22 Mac Lees MD [address] [facility] [place] [address] Cardiovascular Disease 04/20/22 Glue Drier Operator Relationship Specialty Start Date End Date [facility] [address] [place] [address] PCP - Saddle Lining Stitcher Transplant 01/26/19 Kelsey Henderson DO [address] [place] [address] PCP - General Family Medicine 04/20/22 Mac Lees MD [address] [place] [id number] Cardiovascular Disease 04/20/22 Glue Drier Operator Relationship Specialty Start Date End Date Kelsey Henderson DO [address] [place], [place] [address] PCP - General Family Medicine 12/03/16 Glue Drier Operator Relationship Specialty Start Date End Date Kelsey Henderson DO [address] [place] [address] PCP - General Family Medicine 12/03/16 Glue Drier Operator Relationship Specialty Start Date End Date Kelsey Henderson [address] [place], [place] [id number] PCP - General Family Medicine 12/03/16 Source Comments (unrecognize d section and content) In the event this informatio n is protected by the Federal Confidentiality of Alcohol and Drug Abuse Patient Records regulations: The Federal rules restrict any use of the information to criminally investigate or prosecute any alcohol or drug abuse patient.[facility] the event this information is protected by the Federal Confidentiality of Alcohol and Drug Abuse Patient Records regulations: The Federal rules restrict any use of the information to criminally investigate or prosecute any alcohol or drug abuse patient.[facility] the event this information is protected by the Federal Confidentiality of Alcohol and Drug Abuse Patient Records regulations: The Federal rules restrict any use of the information to criminally investigate or prosecute any alcohol or drug abuse patient.[facility] FOR RECORDS PERTAINING TO PATIENTS WHO ARE [...] BE BASED ON THE PRIMARY CLINICAL RECORDS. [facility] [employer] [facility]. provides no warranty or guarantee of the accuracy or completeness of information in this document.
--- NOTE | 2023-10-24 07:58 | RAD_ITS ---
PROCEDURE: Air contrast Upper GI with Small Bowel Follow Through DATE OF EXAMINATION: October 24, 2023.. INDICATION: Female, 57 years old. Intermittent diarrhea and gastroesophageal reflux. FLUOROSCOPY TIME (if supplied): (1:07) minutes/seconds. 26 fluoroscopic images were obtained. TECHNIQUE: Radiographic and fluoroscopic images of the distal esophagus, stomach, and entire small intestine were obtained following the oral ingestion of barium. COMPARISON: None. FINDINGS: The dining car waiter/waitress film of the abdomen demonstrates a normal bowel gas pattern. There are no abnormal calcifications or organomegaly demonstrated. The visualized osseous structures are normal. The esophagus is unremarkable. There is a mild degree of gastroesophageal reflux. No evidence of pericardial hernia. Stomach and duodenum are unremarkable. A single contrast small bowel follow through exam demonstrates the small bowel to have no evidence for stricture, ulceration or mass. The transit time is normal at 30. RAD/Upper GI/w Small Bowel IMPRESSION: 1. Mild degree of gastroesophageal reflux. Normal small bowel follow-through examination. Electronically Signed: Brady Cuenca MD at 9:54 EST ,
== END | disposition home or self-care (01) ==
PROVIDERS: PCP Family Medicine; Referring Provider Internal Medicine Gastroenterology; Visit Provider Internal Medicine Gastroenterology
DX: K21.9 Gastro-esophageal reflux disease without esophagitis (principal)
CPT/HCPCS: 74246; 74248

== ENCOUNTER → 2024-04-26 | Outpatient (CLI) | payer OTHER, SELFPAY ==
--- NOTE | 2024-04-26 14:39 | RAD_ITS ---
STUDY: X-RAY - PELVIS AND RIGHT HIP REASON FOR EXAM: Female, 58 years old. Pain. TECHNIQUE: 3 views of the pelvis and right hip. COMPARISON: None. FINDINGS: There is a non-specific bowel gas pattern. Normal visualized soft tissue structures. Normal bilateral iliac wings, sacroiliac joints and visualized sacrum. Normal bilateral superior and inferior pubic rami. Normal pubic symphysis. Normal bilateral ischial tuberosities. Intact visualized femoral head. There is mild sub-cortical cyst formation of the acetabula bilaterally. Intact hip joint. There is no demonstrated acute fracture. RAD/HIP, UNI W/ Pelvis 2-3 Views IMPRESSION: Mild degenerative arthrosis of the hip joints bilaterally. No demonstrated acute fracture. Electronically Signed: Merritt Jane MD at 16:11 EDT ,
--- NOTE | 2024-04-26 14:39 | RAD_ITS ---
STUDY: X-RAY - LUMBOSACRAL SPINE REASON FOR EXAM: Female, 58 years old. Radiculopathy, lumbosacral region TECHNIQUE: 7 view(s) of the lumbosacral spine were obtained. COMPARISON: None FINDINGS: Normal lumbar lordosis. There is no substantial scoliosis. There is normal alignment of the vertebrae. No subluxation on the flexion extension views to suggest instability There is demineralization of the lumbar vertebrae. There is multi-level degenerative disc disease with multi-level disc space narrowing. There is multilevel facet hypertrophy. Normal bilateral sacral ala, sacroiliac joints, and visualized sacrum. Normal visualized soft tissue structures. RAD/L/S Spine Comp/w Bending Views IMPRESSION: Degenerative changes of the spine, as detailed above. No instability. MRI may be useful. Electronically Signed: Umesh Rico MD at 9:10 EDT ,
== END | disposition home or self-care (01) ==
PROVIDERS: PCP Family Medicine; Referring Provider Anesthesiology Pain Medicine; Visit Provider Anesthesiology Pain Medicine
DX: M54.17 Radiculopathy, lumbosacral region (principal); M25.551 Pain in right hip
CPT/HCPCS: 72114; 73502

== ENCOUNTER → 2024-06-05 | Outpatient (CLI) | payer OTHER, SELFPAY ==
[2024-06-05 09:55] LABS: Absolute Lymphocyte Count 1.32 X10^3/uL (0.83-4.51); Absolute Neutrophil Count 3.5 X10^3/uL (2.0-7.7); Basophil# 0.06 X10^3/uL; Basophil% 1.1 % (0-1); Eosinophil# 0.09 X10^3/uL; Eosinophils% 1.6 % (0-5); Hematocrit 41.7 % (37-47); Hemoglobin 13.8 g/dL (12.0-15.0); Lymphocyte # 1.32 X10^3/ul (0.83-4.51); Lymphocyte % 24.1 % (19-41); Mean Corp Hgb Conc 33.1 g/dL (32-36); Mean Corpuscular Volume 90.7 fL (81-99); Mean Platelet Vol. 10.1 fl (6.2-12.0); Monocyte# 0.47 X10^3/uL; Monocyte% 8.6 % (0-10); NRBC Flagged by Analyzer 0 % (0-5); Neutrophil % 64.1 % (47-70); Platelet Count 194 K/mm3 (150-450); RBC Distribution Width SD 39.4 fl (35.1-43.9); White Blood Count 5.5 K/mm3 (4.4-11.0)
[2024-06-05 10:15] LABS: D-Dimer Quantitative (DVT/PE) 0.35 FEU/ug/m (0.27-0.49)
[2024-06-05 10:20] LABS: BNP,B-Type NATRIURETIC PEPTIDE 23.9 pg/mL (0-100)
[2024-06-05 10:23] LABS: Vitamin B12 662 pg/mL (211-911); Vitamin D,25 Hydroxy 27.4 ng/mL
[2024-06-05 10:29] LABS: ALB/GLOB Ratio 1.3 RATIO (0.9-2.4); AST(SGOT) 16 U/L (15-37); Alanine Aminotransfer ALT/SGPT 24 U/L (13-56); Albumin, Serum 4.1 g/dL (3.2-5.0); Alkaline Phosphatase 79 U/L (45-117); Anion Gap 4 (5-15); BUN 18 mg/dL (7-18); BUN/Creat Ratio 16.4 RATIO (10-20); Calcium,Total 9.8 mg/dL (8.5-10.1); Chloride 106 mmol/L (98-107); Cholesterol 191 mg/dL (200); EST Glomerular Filtration Rate 54 mL/min (>60); Est Glom Filt Rate - Afr Amer 65 mL/min (>60); Globulin 3.2 g/dL (2.2-4.2); Glucose 96 mg/dL (74-106); High Density Lipoprotein 60 mg/dL; Magnesium 2.2 mg/dL (1.6-2.6); Potassium 4.4 mmol/L (3.5-5.1); Protein, Total 7.3 g/dL (6.4-8.2); Sodium Level 139 mmol/L (136-145); T4 Free Direct 1.01 ng/dL (0.76-1.46); Triglycerides 89 mg/dL; Very Low Density Lipoprotein 18 mg/dL (5-40)
== END | disposition home or self-care (01) ==
LOC: MTLAB 07:28
PROVIDERS: PCP Family Medicine; Referring Provider Nurse Practitioner Family; Visit Provider Nurse Practitioner Family
DX: E04.9 Nontoxic goiter, unspecified (principal); E61.2 Magnesium deficiency; R53.83 Other fatigue; R06.02 Shortness of breath; R07.9 Chest pain, unspecified; E55.9 Vitamin D deficiency, unspecified; E53.8 Deficiency of other specified B group vitamins
CPT/HCPCS: 36415; 80053; 80061; 82306; 82607; 83735; 83880; 84439; 84443; 85025; 85379

== ENCOUNTER → 2024-06-07 | Outpatient (CLI) | payer OTHER, SELFPAY ==
--- NOTE | 2024-06-07 15:26 | RAD_ITS ---
STUDY: X-RAY CHEST REASON FOR EXAM: Female, 58 years old. Assessment of heart and lungs. TECHNIQUE: Frontal and lateral views of the chest. COMPARISON: November 12, 2022 FINDINGS: Stable mild hyperinflation. There is no demonstrated pleural abnormality. Normal size heart. Sternotomy wires unchanged. Normal mediastinum and frederic. Normal visualized pulmonary arteries. Normal visualized aortic arch and descending thoracic aorta. Mild diffuse thoracic spondylosis. Normal visualized ribs, clavicles, and shoulders. Is no abnormality of the visualized soft tissue structures of the upper abdomen. RAD/Chest PA and Lateral IMPRESSION: Stable chest with no acute or active cardiopulmonary disease. Electronically Signed: Meir Velez MD at 15:50 EDT ,
== END | disposition home or self-care (01) ==
LOC: MTRAD 15:22
PROVIDERS: PCP Family Medicine; Referring Provider Nurse Practitioner Family; Visit Provider Nurse Practitioner Family
DX: R07.9 Chest pain, unspecified (principal); R06.02 Shortness of breath
CPT/HCPCS: 71046

== ENCOUNTER → 2024-08-30 | Outpatient (CLI) | payer OTHER, SELFPAY | END | disposition home or self-care (01) | PROVIDERS: PCP Family Medicine; Referring Provider Physician Assistant Surgical; Visit Provider Physician Assistant Surgical | DX: R30.0 Dysuria (principal) | CPT/HCPCS: 87077; 87086; 87088; 87186 ==

== ENCOUNTER → 2024-10-11 | Outpatient (CLI) | payer OTHER, SELFPAY ==
[2024-10-11 10:33] LABS: Absolute Lymphocyte Count 1.16 X10^3/uL (0.83-4.51); Basophil# 0.03 X10^3/uL; Basophil% 0.8 % (0-1); Eosinophil# 0.16 X10^3/uL; Eosinophils% 4.3 % (0-5); Hematocrit 37.6 % (37-47); Hemoglobin 12.9 g/dL (12.0-15.0); Lymphocyte # 1.16 X10^3/ul (0.83-4.51); Lymphocyte % 31.5 % (19-41); Mean Corp Hgb Conc 34.3 g/dL (32-36); Mean Corpuscular Hgb 29.9 pg (27.0-32.0); Mean Corpuscular Volume 87.2 fL (81-99); Mean Platelet Vol. 10.6 fl (6.2-12.0); Monocyte# 0.37 X10^3/uL; Monocyte% 10.1 % (0-10); NRBC Flagged by Analyzer 0 % (0-5); Neutrophil # 1.95 X10^3/uL (2.7-7.7); Platelet Count 176 K/mm3 (150-450); RBC Distribution Width CV 11.5 % (11.6-14.6); RBC Distribution Width SD 36.5 fl (35.1-43.9); Red Blood Count 4.31 M/mm3 (4.2-5.4); White Blood Count 3.7 K/mm3 (4.4-11.0)
[2024-10-11 11:11] LABS: Vitamin B12 963 pg/mL (211-911); Vitamin D,25 Hydroxy 32.7 ng/mL
[2024-10-11 11:50] LABS: ALB/GLOB Ratio 1.1 RATIO (0.9-2.4); AST(SGOT) 19 U/L (15-37); Alanine Aminotransfer ALT/SGPT 38 U/L (13-56); Albumin, Serum 3.7 g/dL (3.2-5.0); Alkaline Phosphatase 72 U/L (45-117); Anion Gap 7 (5-15); BUN 12 mg/dL (7-18); BUN/Creat Ratio 14.9 RATIO (10-20); Calcium,Total 9.4 mg/dL (8.5-10.1); Chloride 106 mmol/L (98-107); Cholesterol 143 mg/dL (200); EST Glomerular Filtration Rate 77 mL/min (>60); Est Glom Filt Rate - Afr Amer 94 mL/min (>60); Free T3 2.9 pg/mL (2.18-3.98); Globulin 3.3 g/dL (2.2-4.2); Glucose 87 mg/dL (74-106); High Density Lipoprotein 44 mg/dL; Magnesium 2.6 mg/dL (1.6-2.6); Potassium 4.2 mmol/L (3.5-5.1); Sodium Level 142 mmol/L (136-145); T4 Free Direct 1.17 ng/dL (0.76-1.46); Triglycerides 91 mg/dL; Very Low Density Lipoprotein 18 mg/dL (5-40)
[2024-10-13 17:07] LABS: Anti-Thyroglobulin AB < 1.0 IU/mL (0.0-0.9); Thyroglobulin, Serum Qt. 28.9 ng/mL (1.5-38.5); Thyroid Peroxidase AB 31 IU/mL (0-34); Thyroxin Bind Glob (TBG) 24 ug/mL (13-39)
== END | disposition home or self-care (01) ==
LOC: MTLAB 07:10
PROVIDERS: PCP Family Medicine; Referring Provider Nurse Practitioner Family; Visit Provider Nurse Practitioner Family
DX: Z00.00 Encounter for general adult medical examination without abnormal findings (principal); E53.8 Deficiency of other specified B group vitamins; E61.2 Magnesium deficiency; L65.9 Nonscarring hair loss, unspecified
CPT/HCPCS: 36415; 80053; 80061; 82306; 82607; 83735; 84432; 84436; 84439; 84442; 84443; 84481; 85025; 86376; 86800

== ENCOUNTER → 2024-12-07 | Outpatient (CLI) | payer OTHER, SELFPAY ==
--- NOTE | 2024-12-07 12:57 | RAD_ITS ---
PROCEDURE: CHEST PA AND LATERAL 12/07/2024 REASON FOR EXAM: BACK AND CHEST PAIN TECHNIQUE: Frontal and lateral views of the chest. COMPARISON: 06/07/2024 FINDINGS: The lungs are clear. No pleural effusion or pneumothorax. The cardiomediastinal silhouette is normal in size. Postoperative changes are present, possibly due to prior CABG. No acute osseous or soft tissue abnormality. RAD/Chest PA and Lateral IMPRESSION: 1. No acute cardiopulmonary process. Reading Location: [facility]
[2024-12-07 16:47] LABS: Estradiol < 5.0 pg/mL; Free T3 2.9 pg/mL (2.18-3.98); T4 Total, Thyroxin 6.9 ug/dL (4.8-13.9)
[2024-12-09 08:07] LABS: DHEA Sulfate 30.3 ug/dL (29.4-220.5); PROGESTERONE 0.2 ng/mL (.)
== END | disposition home or self-care (01) ==
LOC: MTLAB 12:54
PROVIDERS: PCP Family Medicine; Referring Provider Family Medicine; Visit Provider Family Medicine
DX: L65.9 Nonscarring hair loss, unspecified (principal); E34.9 Endocrine disorder, unspecified; M54.6 Pain in thoracic spine; R07.9 Chest pain, unspecified
CPT/HCPCS: 36415; 71046; 82627; 82670; 84144; 84436; 84439; 84443; 84481; 82626

== ENCOUNTER → 2025-01-01 | Outpatient (CLI) | payer OTHER, SELFPAY ==
--- NOTE | 2025-01-01 17:45 | CT_ITS ---
PROCEDURE: CHEST WITH CONTRAST 01/01/2025 REASON FOR EXAM: CHEST AND BACK PAIN TECHNIQUE: Prone and supine chest CT with intravenous contrast, high resolution CT (HRCT) protocol. Coronal and Sagittal reconstruction series were provided. One or more dose reduction techniques were used (e.g., Automated exposure control, adjustment of the mA and/or kV according to patient size, use of iterative reconstruction technique). FINDINGS: Hardware: Status post median sternotomy. Lymph nodes: 1.5 cm peripherally enhancing nodule of the posterior aspect of the right lobe of the thyroid gland and follow-up thyroid ultrasound is recommended. Heart and Vasculature: Normal heart size. No pericardial effusion. Thoracic aorta and pulmonary arteries are unremarkable. Lungs and Airways: 4 mm noncalcified nodule in the periphery of the left lower lobe of the lungs on image 79. Pleura: No pleural effusion Upper Abdomen: Unremarkable. Bones: Status post median sternotomy. CT/Chest WITH Contrast IMPRESSION: Coronary artery calcification (CAC) is was not evaluable 4 mm noncalcified left lower lobe nodule and follow-up CT is recommended 12 mon ths document stability. 1.5 cm nodule of the right lobe of the thyroid gland and follow-up thyroid ultr asound is recommended. Reading Location: [facility]
== END | disposition home or self-care (01) ==
LOC: CT 17:39
PROVIDERS: PCP Family Medicine; Referring Provider Family Medicine; Visit Provider Family Medicine
DX: R07.89 Other chest pain (principal); M54.6 Pain in thoracic spine
CPT/HCPCS: 71260; Q9967

== ENCOUNTER → 2025-01-09 | Outpatient (CLI) | payer OTHER, SELFPAY ==
--- NOTE | 2025-01-09 18:24 | US_ITS ---
PROCEDURE: THYROID (USTHY), 01/09/2025 REASON FOR EXAM: NODULE TECHNIQUE: Grayscale and color Doppler imaging of the thyroid was performed. COMPARISON: 12/06/2022 FINDINGS: Right lobe measures 5.4 x 2.1 x 1.9cm. Essentially homogeneous background echotexture. No abnormal vascularity. Nodules as below: *Midgland, 7 x 6 x 4 mm, solid, hypoechoic, TI-RADS 4. *[place]gland, 8 x 8 x 6 mm, solid, isoechoic, ill-defined margins, possible pseudonodule, TI-RADS 3. Lower pole, 14 x 13 x 10 mm, mostly solid, mostly isoechoic, ill-defined margins, possible pseudonodule, TI-RADS 3. *Lower pole, 7 x 6 x 3 mm, solid, hypoechoic, TI-RADS 4. *Additional tiny nodules and cysts. Left lobe measures 5.0 x 1.8 x 1.5 cm. Essentially homogeneous background echotexture. No abnormal vascularity. Nodules as below: *Lower pole, 8 x 6 x 9 mm, solid, essentially isoechoic, TI-RADS 3. *Lower pole, 7 x 6 x 6 mm, solid, essentially isoechoic, ill-defined margins, possible pseudonodule, TI-RADS 3. Isthmus measures 3 mm in thickness. US/Thyroid IMPRESSION: 1. Assessment is TI-RADS 4. No nodules currently meet criteria for FNA or follo w-up, as before. 2. Normal size gland with essentially unremarkable background echotexture. Management recommendations for TI-RADS 3 findings: FNA if = 2.5 cm; Follow if = 1.5 cm at 1, 3, and 5 years. Management recommendations for TI-RADS 4 findings: FNA if = 1.5 cm; Follow if = 1 cm at 1, 2, 3, and 5 years. Recommendations per ACR Thyroid Imaging, Reporting and Data System (TI-RADS): Mio hernández Paper of the ACR TI-RADS Committee, 2017 ([email or web address]) Reading Location: [id number]
== END | disposition home or self-care (01) ==
PROVIDERS: PCP Family Medicine; Referring Provider Family Medicine; Visit Provider Family Medicine
DX: E04.1 Nontoxic single thyroid nodule (principal)
CPT/HCPCS: 76536

== ENCOUNTER → 2025-05-14 | Outpatient (CLI) | payer OTHER, SELFPAY | END | disposition home or self-care (01) | LOC: LABSPEC 11:07 | PROVIDERS: PCP Family Medicine; Visit Provider Nurse Practitioner Family | DX: R30.0 Dysuria (principal) | CPT/HCPCS: 87086; 87088; 87186 ==

== ENCOUNTER → 2025-07-11 | Outpatient (CLI) | payer OTHER, SELFPAY ==
--- NOTE | 2025-07-11 19:49 | STRESSREP_ITS ---
Stress Test Report
--- NOTE | 2025-07-11 19:49 | STRESSREP ---
Stress Test Report Pharmacologic myocardial perfusion stress test. 59-year-old lady with a history of chest pain. Resting EKG demonstrates sinus bradycardia with a rate of 56 bpm. Resting blood pressure is 120/80 mmHg. 0.4 mg of regadenoson was infused per usual protocol followed by rapid intravenous saline flush injection. Continuous EKG monitoring was performed. The maximum heart rate was 95 bpm which was 59% of max impacted heart rate the maximum workload was 1 metabolic equivalent. At rest there were no ST or T wave changes noted to suggest ischemia and at peak infusion nonspecific ST changes were noted which did not meet the criteria for ischemia. No clinical angina is noted. The final blood pressure was 118/80 mmHg. Myocardial perfusion protocol. 9.2 mCi of technetium 99m sestamibi was injected at rest. 0.4 mg of regadenoson was infused per usual protocol. At peak infusion 30.1 mCi of technetium 99m sestamibi was injected stress images were obtained stress and rest images were reconstructed and compared in the short axis vertical long and horizontal long axis. Gated images were also obtained. Perfusion SPECT analysis: Review of the stress images demonstrate normal uptake of tracer noted in all areas of the myocardium. The resting images similar demonstrated normal uptake of tracer noted in all areas of the myocardium. No areas of reversibility are noted to suggest ischemia and no previous infarct is noted. Gated SPECT analysis: The gated ejection fraction is 69%. Conclusion: Normal pharmacologic myocardial perfusion stress test. Preserved ejection fraction.
== END | disposition home or self-care (01) ==
LOC: CVS 06:20
PROVIDERS: PCP Family Medicine; Referring Provider Physician Assistant Medical; Visit Provider Physician Assistant Medical
DX: Q24.5 Malformation of coronary vessels (principal); R07.9 Chest pain, unspecified; Z98.890 Other specified postprocedural states
CPT/HCPCS: 78452; 93017; A9500; A4216; J2785

== ENCOUNTER → 2025-07-16 | Outpatient (CLI) | payer OTHER, SELFPAY ==
--- NOTE | 2025-07-16 15:03 | BI_ITS ---
EXAM: BI/SCRN MAMM (CAD)W/ELDER BILAT
== END | disposition home or self-care (01) ==
LOC: OPBI 15:02
PROVIDERS: PCP Family Medicine; Referring Provider Family Medicine; Visit Provider Family Medicine
DX: Z12.31 Encounter for screening mammogram for malignant neoplasm of breast (principal)
CPT/HCPCS: 77063; 77067

== ENCOUNTER → 2025-08-12 | Outpatient (CLI) | payer OTHER, SELFPAY ==
--- NOTE | 2025-08-12 13:15 | RAD_ITS ---
PROCEDURE: ABDOMEN SINGLE VIEW 08/12/2025 REASON FOR EXAM: CONSTIPATION, ABDOMINAL PAIN TECHNIQUE: Procedure Code: RADABD Modality: DX Procedure: ABDOMEN SINGLE VIEW COMPARISON: None FINDINGS: There is a nonobstructive bowel gas pattern. There are no abnormal soft tissue calcifications or radiopaque foreign bodies. There are no significant bony abnormalities. RAD/Abdomen Single View IMPRESSION: NO ACUTE FINDINGS Reading Location: [id number]
== END | disposition home or self-care (01) ==
LOC: MTRAD 13:14
PROVIDERS: PCP Family Medicine; Referring Provider Family Medicine; Visit Provider Family Medicine
DX: K59.00 Constipation, unspecified (principal)
CPT/HCPCS: 74018